=== PATIENT | female | born 1950 | race Caucasian/White ===

== ENCOUNTER 2018-09-09 08:56 | Day surgery (SDC) | payer MEDICARE, OTHER ==
[~2018-09-09 08:56] MED LIST: Lactated Ringers 1,000 ML IV SCH; Sodium Chloride 0.9% 10 ML Syringe FLUSH PRN
[2018-09-09] MEDS ORDERED: Albuterol/Ipratropium 3.0-0.5 MG/3 ML Neb Soln NEB PRN (09:28)
[2018-09-09] MEDS ORDERED: Propofol 200 MG/20 ML SDV ONE (10:31)
[2018-09-09 12:02] VITALS: BP 101/59
--- NOTE | 2018-09-09 13:59 | OR ---
PREOPERATIVE DIAGNOSES: Weight loss, nausea, mild dysphagia. POSTOPERATIVE DIAGNOSES: Large hiatal hernia with multiple proximal gastric ulcers. PROCEDURE PROPOSED: Upper gastrointestinal panendoscopy. PROCEDURE DONE: Upper gastrointestinal panendoscopy with antral biopsies. INDICATION: This is a 68-year-old female with a history of some weight loss, anorexia, nausea, some mild dysphagia, and it was felt that she should be gastroscoped to rule out significant pathology. TECHNIQUE AND FINDINGS: The patient was brought to the endoscopy suite, placed in left lateral decubitus position. She was sedated per FUEL MANAGER with propofol. The flexible video gastroscope was then passed transorally after placing the intraoral bite block. The scope was then advanced into the esophagus, through the stomach, well into the duodenum. The duodenum and duodenal bulb were unremarkable. The antrum and distal portion of the stomach appeared unremarkable. A couple of antral biopsies were taken to rule out H. pylori. The proximal stomach was found to have a rather large significant hiatal hernia, approximately 8 cm of her upper stomach was up in her chest, estimating about at least a 3rd of her stomach being herniated above her diaphragms. There were some gastric ulcers noted within the hiatal hernia. The GE junction itself, however, appeared unremarkable. There were no signs of any reflux esophagitis, Schatzki's ring, or stenosis, and the remainder of the esophagus was normal as the scope was then withdrawn. She tolerated the procedure well. FINAL IMPRESSION: Large hiatal hernia with gastric ulcerations within it. PLAN: She is presently taking Prilosec and has done that for quite some time. I am going to add Carafate to her regimen for 1 month and have her avoid caffeine, alcohol, ibuprofen, and she does smoke and would definitely benefit herself in stopping that. SCM: 09/09/2018 11:52:14 MODL: 09/09/2018 13:51:01 /[id number]
== END 2018-09-09 13:15 | disposition home or self-care (01) ==
LOC: VM.SDS 08:56
PROVIDERS: ATTEND Surgery
DX: K25.9 Gastric ulcer, unspecified as acute or chronic, without hemorrhage or perforation (principal); K44.9 Diaphragmatic hernia without obstruction or gangrene; I50.9 Heart failure, unspecified; J44.9 Chronic obstructive pulmonary disease, unspecified; F17.210 Nicotine dependence, cigarettes, uncomplicated; E78.5 Hyperlipidemia, unspecified; G89.4 Chronic pain syndrome; F41.1 Generalized anxiety disorder; Z86.711 Personal history of pulmonary embolism; Z79.01 Long term (current) use of anticoagulants; Z79.899 Other long term (current) drug therapy; Z88.0 Allergy status to penicillin
CPT/HCPCS: 00731; 36415; 43239; 85610; J2704; J7120; J7620-GY

== ENCOUNTER 2019-02-25 22:53 | Emergency (ER) | payer MEDICARE, OTHER ==
[2019-02-25] MEDS ORDERED: Sodium Chloride 0.9% 10 ML Syringe FLUSH PRN (23:17)
[2019-02-25] MEDS ORDERED: methylPREDNISolone Sodium Succinate 125 MG/2 ML SDV IVPUSH ONE (23:20)
[2019-02-25] MEDS ORDERED: HYDROmorphone 1 MG/ML Syringe IVPUSH ONE (23:21)
[2019-02-25] MEDS ORDERED: Aspirin 81 MG Tab.Chew PO ONE (23:57)
[2019-02-26 00:02] LABS: CHLORIDE,CL 102 mmol/L (98-107); SODIUM,NA 143 mmol/L (136-145)
[2019-02-26 00:21] LABS: ANION GAP 13.1 mmol/L (10-20)
[2019-02-26] MEDS ORDERED: Take Home: Doxycycline 100 MG Tab, 4 Tab Pack PO ONE (00:23)
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
[2019-02-26 07:07] VITALS: BP 123/72; PULSE 88
--- NOTE | 2019-02-26 13:00 | CR ---
[id number] RAD/RAD Chest PA or AP 1V EXAM: RAD Chest PA or AP 1V INDICATION: CHEST PAIN. COMPARISON: None. DISCUSSION: Cardiomediastinal silhouette is normal in size and contour. No infiltrate, effusion, pneumothorax, or edema. Pulmonary hyperinflation. IMPRESSION: No acute cardiopulmonary abnormality. Kj Pavon DO 02/26/19 [id number] Thank you for allowing us to participate in the care of your patient.
== END 2019-02-26 00:40 | disposition home or self-care (01) ==
LOC: SUPCPDRO 22:53 → VM.ED 22:53
DX: J44.1 Chronic obstructive pulmonary disease with (acute) exacerbation (principal); R07.89 Other chest pain; E78.00 Pure hypercholesterolemia, unspecified; I50.9 Heart failure, unspecified; K21.9 Gastro-esophageal reflux disease without esophagitis; F41.9 Anxiety disorder, unspecified; F32.9 Major depressive disorder, single episode, unspecified; Z88.0 Allergy status to penicillin; Z79.899 Other long term (current) drug therapy; Z79.01 Long term (current) use of anticoagulants
CPT/HCPCS: 36415; 71045; 80053; 83605; 83735; 83880; 84100; 84443; 84484; 85025; 85379; 85610; 86140; 87040; 93005; 96374; 99285; A9270; J2930; 99284-GF

== ENCOUNTER 2020-10-01 17:39 | Emergency (ER) | payer MEDICARE, OTHER ==
[2020-10-01] MEDS ORDERED: Sodium Chloride 0.9% 1,000 ML IV SCH (18:00)
[2020-10-01 18:45] LABS: CHLORIDE,CL 103 mmol/L (98-107); SODIUM,NA 142 mmol/L (136-145)
[2020-10-01 18:48] LABS: ANION GAP 11.8 mmol/L (5-15)
--- NOTE | 2020-10-01 18:58 | CR ---
[id number] RAD/RAD Chest PA And Lateral EXAM: RAD Chest PA And Lateral CLINICAL DATA: SHORTNESS OF BREATH COMPARISON: CORRELATION IS MADE WITH FEBRUARY 25, 2019 FINDINGS: The lungs are clear but hyperaerated. The cardiomediastinal contour is prominent but stable There is a moderate hiatal hernia. The regional bones and soft tissues are unremarkable. IMPRESSION: AIRWAY DISEASE Dwight Lopez MD 10/01/20 [id number] Thank you for allowing us to participate in the care of your patient.
[2020-10-01] MEDS ORDERED: cefTRIAXone 1 GM Vial IVPUSH ONE (19:04)
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
[2020-10-01] MEDS ORDERED: methylPREDNISolone Sodium Succinate 125 MG/2 ML SDV IVPUSH ONE (19:05)
[2020-10-01 20:10] VITALS: BP 120/54; PULSE 100
== END 2020-10-01 19:40 | disposition home or self-care (01) ==
LOC: VM.ED 17:39
DX: J44.1 Chronic obstructive pulmonary disease with (acute) exacerbation (principal); I50.9 Heart failure, unspecified; K21.9 Gastro-esophageal reflux disease without esophagitis; F17.210 Nicotine dependence, cigarettes, uncomplicated; Z20.822 Contact with and (suspected) exposure to COVID-19; Z88.0 Allergy status to penicillin; Z79.01 Long term (current) use of anticoagulants
CPT/HCPCS: 36415; 71046; 80053; 83605; 83880; 85025; 85379; 86140; 87040; 96374; 96375; 99284; 99285-25; J0696; J2930; J7030; U0002

== ENCOUNTER 2021-04-12 06:55 | Emergency (ER) | payer MEDICARE, OTHER ==
[2021-04-12 07:25] VITALS: BP 123/71; PULSE 85
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
== END 2021-04-12 08:05 | disposition home or self-care (01) ==
LOC: VM.ED 06:55
DX: R22.32 Localized swelling, mass and lump, left upper limb (principal); Z88.0 Allergy status to penicillin; I50.9 Heart failure, unspecified; J44.9 Chronic obstructive pulmonary disease, unspecified; K21.9 Gastro-esophageal reflux disease without esophagitis; Z79.899 Other long term (current) drug therapy; Z79.01 Long term (current) use of anticoagulants
CPT/HCPCS: 36415; 85610; 99283

== ENCOUNTER 2021-11-02 16:03 | Emergency (ER) | payer MEDICARE, OTHER ==
[2021-11-02] MEDS ORDERED: Acetaminophen/HYDROcodone 325-10 MG Tab PO ONE (16:34)
[2021-11-02 17:07] LABS: CHLORIDE,CL 100 mmol/L (98-107); SODIUM,NA 138 mmol/L (136-145)
[2021-11-02 17:08] LABS: ANION GAP 13.7 mmol/L (5-15)
[2021-11-02 17:35] VITALS: BP 138/88; PULSE 88
== END 2021-11-02 17:33 | disposition home or self-care (01) ==
LOC: VM.ED 16:03
DX: R51.9 Headache, unspecified (principal); I10 Essential (primary) hypertension; J44.9 Chronic obstructive pulmonary disease, unspecified; K21.9 Gastro-esophageal reflux disease without esophagitis; Z87.891 Personal history of nicotine dependence; Z88.0 Allergy status to penicillin; Z88.8 Allergy status to other drugs, medicaments and biological substances; Z79.01 Long term (current) use of anticoagulants; Z79.899 Other long term (current) drug therapy
CPT/HCPCS: 36415; 70450; 80053; 81001; 85025; 85610; 86140; 99284; 99285-25; A9270-GY

== ENCOUNTER 2022-01-25 16:59 | Emergency (ER) | payer MEDICARE, OTHER ==
[2022-01-25 17:08] VITALS: BP 101/48; PULSE 86
[2022-01-25 18:00] LABS: CHLORIDE,CL 103 mmol/L (98-107); SODIUM,NA 142 mmol/L (136-145)
[2022-01-25 18:03] LABS: ANION GAP 16.5 mmol/L (5-15); ESTIMATED GFR 60 mL/min (>=60)
[2022-01-25] MEDS ORDERED: methylPREDNISolone Sodium Succinate 125 MG/2 ML SDV IM ONE (18:19)
== END 2022-01-25 18:39 | disposition home or self-care (01) ==
LOC: VM.ED 16:59
DX: J44.1 Chronic obstructive pulmonary disease with (acute) exacerbation (principal); K21.9 Gastro-esophageal reflux disease without esophagitis; Z79.899 Other long term (current) drug therapy; Z87.891 Personal history of nicotine dependence; Z88.8 Allergy status to other drugs, medicaments and biological substances
CPT/HCPCS: 36415; 71046; 80053; 85025; 85379; 86140; 96372; 99284; 99285; J2930

== ENCOUNTER 2022-09-02 15:04 | Emergency (ER) | payer MEDICARE, OTHER ==
[2022-09-02] MEDS: Sodium Chloride 0.9% 1,000 ML IV ONE (17:58)
[2022-09-02 18:13] LABS: ANION GAP 10.3 mmol/L (5-15); CHLORIDE,CL 102 mmol/L (98-107); ESTIMATED GFR 60 mL/min (>=60); SODIUM,NA 139 mmol/L (136-145)
== END 2022-09-02 21:04 | disposition home or self-care (01) ==
LOC: VM.ED 15:04
DX: R07.89 Other chest pain (principal); I50.9 Heart failure, unspecified; J44.9 Chronic obstructive pulmonary disease, unspecified; K21.9 Gastro-esophageal reflux disease without esophagitis; Z88.0 Allergy status to penicillin; Z88.8 Allergy status to other drugs, medicaments and biological substances; Z79.899 Other long term (current) drug therapy; Z79.01 Long term (current) use of anticoagulants
CPT/HCPCS: 36415; 71046; 80053; 83605; 85025; 85610; 87040; 96360; 96361; 99284; 99285-25; J7030

== ENCOUNTER 2022-11-08 21:36 | Emergency (ER) | payer MEDICARE, OTHER ==
[2022-11-08] MEDS ORDERED: Ondansetron 4 MG Tab.DIS PO ONE (22:06)
[2022-11-08 22:36] LABS: CHLORIDE,CL 100 mmol/L (98-107); SODIUM,NA 138 mmol/L (136-145)
[2022-11-08 22:37] LABS: ANION GAP 14.3 mmol/L (5-15); ESTIMATED GFR 37 mL/min (>=60)
[2022-11-08] MEDS ORDERED: Take Home: Ondansetron 4 MG Tab.DIS, 5 Tab Pack PO ONE (22:41)
[2022-11-08 22:54] VITALS: BP 122/72; PULSE 69
[2022-11-08] MEDS ORDERED: Take Home: Ondansetron 4 MG Tab.DIS, 5 Tab Pack ONE (23:00)
== END 2022-11-08 23:01 | disposition home or self-care (01) ==
LOC: VM.ED 21:36
DX: K52.9 Noninfective gastroenteritis and colitis, unspecified (principal); K21.9 Gastro-esophageal reflux disease without esophagitis; J44.9 Chronic obstructive pulmonary disease, unspecified; M10.9 Gout, unspecified; Z88.0 Allergy status to penicillin; Z88.8 Allergy status to other drugs, medicaments and biological substances; Z79.899 Other long term (current) drug therapy
CPT/HCPCS: 36415; 80053; 85025; 85610; 99284; A9270-GY; Q0162

== ENCOUNTER 2022-12-19 13:31 | Emergency (ER) | payer MEDICARE, OTHER ==
[2022-12-19 14:13] VITALS: BP 126/74; PULSE 90
[2022-12-19 14:23] LABS: BASOPHILS ABSOLUTE AUTO 0.1 x10^3/uL (0.0-0.2); BASOPHILS PERCENT AUTO 1.3 % (0.2-1.2); EOSINOPHILS ABSOLUTE AUTO 0.7 x10^3/uL (0.0-0.5); EOSINOPHILS PERCENT AUTO 13.6 % (0.0-4.0); HEMATOCRIT 41.1 % (33.0-47.0); HEMOGLOBIN 12.2 g/dL (12.0-16.0); IMMATURE GRAN ABSOLUTE AUTO 0.01 x10^3/uL (0.00-0.07); LYMPHOCYTES ABSOLUTE AUTO 1.1 x10^3/uL (1.0-4.8); LYMPHOCYTES PERCENT AUTO 19.6 % (25.0-50.0); MEAN CORPUSCULAR HEMOGLOBIN 27.6 pg (26.0-32.0); MEAN CORPUSCULAR HGB CONC 29.7 g/dL (32.0-36.0); MONOCYTES ABSOLUTE AUTO 0.4 x10^3/uL (0.0-0.8); MONOCYTES PERCENT AUTO 6.7 % (2.0-11.0); NEUTROPHILS ABSOLUTE AUTO 3.1 x10^3/uL (1.8-7.7); NEUTROPHILS PERCENT AUTO 58.6 % (50.0-80.0); PLATELET COUNT,PLT 241 x10^3/uL (130-400); RED BLOOD CELL COUNT 4.42 x10^6/uL (4.00-5.50); WHITE BLOOD CELL COUNT,WBC 5.4 x10^3/uL (4.0-10.0)
[2022-12-19 14:36] LABS: INR 3.4 (2.0-3.5); PROTHROMBIN TIME 34.9 SEC (9.5-12.2)
[2022-12-19 14:42] LABS: A/G RATIO 0.85; ALANINE AMINOTRANSFERASE,ALT 16 U/L (14-59); ALBUMIN 3.3 g/dL (3.4-5.0); ALKALINE PHOSPHATASE 107 U/L (46-116); ANION GAP 0.6 mmol/L (5-15); ASPARTATE AMNIOTRANSFERASE,AST 11 U/L (15-37); BILIRUBIN TOTAL 0.2 mg/dL (0.2-1.0); BLOOD UREA NITROGEN,BUN 16 mg/dL (7-18); C-REACTIVE PROTEIN < 0.2 mg/dL (<=0.9); CALCIUM 9.2 mg/dL (8.5-10.1); CARBON DIOXIDE,CO2 32 mmol/L (21-32); CHLORIDE,CL 103 mmol/L (98-107); CREATININE 1.6 mg/dL (0.55-1.02); EST CRCL DRUG DOSING (CG) 26.29 mL/min; ESTIMATED GFR 34 mL/min (>=60); GLUCOSE RANDOM 101 mg/dL (70-99); POTASSIUM,K 4.6 mmol/L (3.5-5.1); PROTEIN TOTAL,TP 7.2 g/dL (6.4-8.2); SODIUM,NA 131 mmol/L (136-145)
== END 2022-12-19 15:23 | disposition home or self-care (01) ==
LOC: VM.ED 13:31
DX: J44.1 Chronic obstructive pulmonary disease with (acute) exacerbation (principal); I50.9 Heart failure, unspecified; K21.9 Gastro-esophageal reflux disease without esophagitis; Z72.0 Tobacco use; Z88.0 Allergy status to penicillin; Z88.8 Allergy status to other drugs, medicaments and biological substances; Z79.899 Other long term (current) drug therapy
CPT/HCPCS: 36415; 71046; 80053; 83880; 85025; 85610; 86140; 94760; 99284; 99285

== ENCOUNTER 2023-02-01 17:07 | Emergency (ER) | payer MEDICARE, OTHER ==
[2023-02-01 18:19] LABS: BASOPHILS ABSOLUTE AUTO 0.1 x10^3/uL (0.0-0.2); EOSINOPHILS ABSOLUTE AUTO 0.9 x10^3/uL (0.0-0.5); EOSINOPHILS PERCENT AUTO 15.9 % (0.0-4.0); HEMATOCRIT 48.1 % (33.0-47.0); HEMOGLOBIN 14.5 g/dL (12.0-16.0); IMMATURE GRAN ABSOLUTE AUTO 0.01 x10^3/uL (0.00-0.07); LYMPHOCYTES ABSOLUTE AUTO 1.6 x10^3/uL (1.0-4.8); LYMPHOCYTES PERCENT AUTO 27.1 % (25.0-50.0); MEAN CORPUSCULAR HEMOGLOBIN 29.1 pg (26.0-32.0); MEAN CORPUSCULAR HGB CONC 30.1 g/dL (32.0-36.0); MEAN CORPUSCULAR VOLUME 96.4 fL (78.0-93.0); MONOCYTES ABSOLUTE AUTO 0.4 x10^3/uL (0.0-0.8); MONOCYTES PERCENT AUTO 6.6 % (2.0-11.0); NEUTROPHILS ABSOLUTE AUTO 2.9 x10^3/uL (1.8-7.7); NEUTROPHILS PERCENT AUTO 49.2 % (50.0-80.0); PLATELET COUNT,PLT 206 x10^3/uL (130-400); RED BLOOD CELL COUNT 4.99 x10^6/uL (4.00-5.50); WHITE BLOOD CELL COUNT,WBC 5.8 x10^3/uL (4.0-10.0)
[2023-02-01 18:30] LABS: INR 4.3 (2.0-3.5); PROTHROMBIN TIME 44.1 SEC (9.5-12.2)
[2023-02-01 18:35] LABS: A/G RATIO 1.03; ALANINE AMINOTRANSFERASE,ALT 15 U/L (14-59); ALKALINE PHOSPHATASE 131 U/L (46-116); ASPARTATE AMNIOTRANSFERASE,AST 25 U/L (15-37); BILIRUBIN TOTAL 0.3 mg/dL (0.2-1.0); BLOOD UREA NITROGEN,BUN 9 mg/dL (7-18); CALCIUM 9.4 mg/dL (8.5-10.1); CARBON DIOXIDE,CO2 35 mmol/L (21-32); CHLORIDE,CL 99 mmol/L (98-107); CREATINE KINASE,CK 145 U/L (26-192); CREATININE 1.7 mg/dL (0.55-1.02); GLUCOSE RANDOM 116 mg/dL (70-99); POTASSIUM,K 4.8 mmol/L (3.5-5.1); PROTEIN TOTAL,TP 7.9 g/dL (6.4-8.2); SODIUM,NA 141 mmol/L (136-145)
[2023-02-01 18:36] LABS: ANION GAP 11.8 mmol/L (5-15); ESTIMATED GFR 32 mL/min (>=60)
[2023-02-01 22:14] VITALS: BP 135/67
[2023-02-01 22:15] VITALS: PULSE 89
== END 2023-02-01 21:10 | disposition home or self-care (01) ==
LOC: VM.ED 17:07
DX: R51.9 Headache, unspecified (principal); R42 Dizziness and giddiness; R09.02 Hypoxemia; I50.9 Heart failure, unspecified; J44.9 Chronic obstructive pulmonary disease, unspecified; K21.9 Gastro-esophageal reflux disease without esophagitis; F17.210 Nicotine dependence, cigarettes, uncomplicated; Z88.0 Allergy status to penicillin; Z88.8 Allergy status to other drugs, medicaments and biological substances; Z79.01 Long term (current) use of anticoagulants; Z79.899 Other long term (current) drug therapy
CPT/HCPCS: 36415; 70450; 71046; 80053; 82550; 85025; 85610; 86140; 99284

== ENCOUNTER 2023-03-20 15:58 | Inpatient (IN) | payer MEDICARE, OTHER ==
[2023-03-20] MEDS ORDERED: Levofloxacin 500 MG Tab PO SCH ×2 (16:30→18:31)
[2023-03-20] MEDS ORDERED: Heparin Sodium 5,000 Units/ML Vial SUBCUT SCH (16:30)
[2023-03-20] MEDS ORDERED: Albuterol/Ipratropium 3.0-0.5 MG/3 ML Neb Soln NEB PRN (16:36)
[2023-03-20] MEDS ORDERED: methylPREDNISolone Sodium Succinate 40 MG/1 ML SDV IVPUSH ONE (16:45)
[2023-03-20 17:18] LABS: BASOPHILS ABSOLUTE AUTO 0.1 x10^3/uL (0.0-0.2); BASOPHILS PERCENT AUTO 0.9 % (0.2-1.2); EOSINOPHILS ABSOLUTE AUTO 0.5 x10^3/uL (0.0-0.5); EOSINOPHILS PERCENT AUTO 10.1 % (0.0-4.0); HEMATOCRIT 49.9 % (33.0-47.0); HEMOGLOBIN 15.9 g/dL (12.0-16.0); LYMPHOCYTES ABSOLUTE AUTO 1.5 x10^3/uL (1.0-4.8); LYMPHOCYTES PERCENT AUTO 28.4 % (25.0-50.0); MEAN CORPUSCULAR HGB CONC 31.9 g/dL (32.0-36.0); MEAN CORPUSCULAR VOLUME 97.3 fL (78.0-93.0); MONOCYTES ABSOLUTE AUTO 0.4 x10^3/uL (0.0-0.8); MONOCYTES PERCENT AUTO 8.2 % (2.0-11.0); NEUTROPHILS ABSOLUTE AUTO 2.8 x10^3/uL (1.8-7.7); NEUTROPHILS PERCENT AUTO 52.4 % (50.0-80.0); PLATELET COUNT,PLT 153 x10^3/uL (130-400); RED BLOOD CELL COUNT 5.13 x10^6/uL (4.00-5.50); WHITE BLOOD CELL COUNT,WBC 5.4 x10^3/uL (4.0-10.0)
[2023-03-20 17:30] LABS: PROTHROMBIN TIME 20.5 SEC (9.5-12.2)
[2023-03-20 17:40] LABS: A/G RATIO 1.14; ALBUMIN 4.1 g/dL (3.4-5.0); BILIRUBIN TOTAL 0.3 mg/dL (0.2-1.0); CALCIUM 9.3 mg/dL (8.5-10.1); CREATININE 2.4 mg/dL (0.55-1.02); EST CRCL DRUG DOSING (CG) 15.22 mL/min; POTASSIUM,K 4.5 mmol/L (3.5-5.1); PROTEIN TOTAL,TP 7.7 g/dL (6.4-8.2)
[2023-03-20 17:41] LABS: ANION GAP 9.5 mmol/L (5-15)
[2023-03-20 18:01] LABS: CORONAVIRUS COVID-19 NAA NEGATIVE (NEGATIVE); INFLUENZA A NAA NEGATIVE (NEGATIVE); INFLUENZA B NAA NEGATIVE (NEGATIVE); RESPIRATORY SYNCYTIAL VIR NAA NEGATIVE (NEGATIVE)
[2023-03-20] MEDS: methylPREDNISolone Sodium Succinate 40 MG/1 ML SDV IVPUSH SCH ×2 (18:18→18:19)
[2023-03-20] MEDS: Sodium Chloride 0.9% 10 ML Syringe FLUSH PRN (18:20)
[2023-03-20] MEDS ORDERED: Acetaminophen/HYDROcodone 325-10 MG Tab PO PRN (18:31)
[2023-03-20] MEDS ORDERED: hydrOXYzine HCl 25 MG Tab PO PRN (18:31)
[2023-03-20] MEDS ORDERED: CARISOPRODOL 350 MG PO PRN (18:31)
[2023-03-20] MEDS ORDERED: Acetaminophen/Diphenhydramine 500-25 MG Tab PO PRN (18:31)
[2023-03-20] MEDS ORDERED: Polyethylene Glycol 3350 Powder 17 GM Packet PO PRN (18:31)
[2023-03-20] MEDS: Albuterol/Ipratropium 3.0-0.5 MG/3 ML Neb Soln NEB SCH ×2 (18:51→23:01)
[2023-03-20] MEDS: Sodium Chloride 0.9% 1,000 ML IV SCH (19:11)
[2023-03-20] MEDS: Gabapentin 300 MG Cap PO SCH ×2 (21:18→21:19)
[2023-03-20] MEDS: traZODone 50 MG Tab PO SCH (21:20)
[2023-03-20] MEDS: Arformoterol 15 MCG/2 ML Neb Soln NEB SCH (21:23)
[2023-03-21] MEDS: Albuterol/Ipratropium 3.0-0.5 MG/3 ML Neb Soln NEB SCH ×6 (02:48→23:14)
[2023-03-21] MEDS: Sodium Chloride 0.9% 1,000 ML IV SCH (02:58)
[2023-03-21] MEDS: methylPREDNISolone Sodium Succinate 40 MG/1 ML SDV IVPUSH SCH ×2 (06:02→17:38)
[2023-03-21] MEDS: Omeprazole 20 MG Cap.CR PO SCH (06:07)
[2023-03-21] MEDS: Arformoterol 15 MCG/2 ML Neb Soln NEB SCH ×2 (06:48→22:00)
[2023-03-21] MEDS: Multivitamin Tab PO SCH (08:15)
[2023-03-21] MEDS: Gabapentin 300 MG Cap PO SCH ×4 (08:15→23:13)
[2023-03-21 09:42] LABS: HEMOGLOBIN 14.1 g/dL (12.0-16.0); MEAN CORPUSCULAR HEMOGLOBIN 31.1 pg (26.0-32.0); MEAN CORPUSCULAR HGB CONC 31.3 g/dL (32.0-36.0); MEAN CORPUSCULAR VOLUME 99.3 fL (78.0-93.0); RED BLOOD CELL COUNT 4.53 x10^6/uL (4.00-5.50); WHITE BLOOD CELL COUNT,WBC 3.9 x10^3/uL (4.0-10.0)
[2023-03-21 09:44] LABS: BILIRUBIN,URINE NEGATIVE (NEGATIVE); COLOR,URINE YELLOW (YELLOW); GLUCOSE,URINE NEGATIVE (NEGATIVE); KETONES,URINE NEGATIVE (NEGATIVE); LEUKOCYTE ESTERASE,URINE SMALL (NEGATIVE); NITRITE,URINE NEGATIVE (NEGATIVE); OCCULT BLOOD,URINE NEGATIVE (NEGATIVE); PROTEIN,URINE NEGATIVE (NEGATIVE); UROBILINOGEN,URINE 0.2 EU/dL (0.2)
[2023-03-21 09:46] LABS: APPEARANCE,URINE SLIGHTLY CLOUDY (CLEAR)
[2023-03-21 09:49] LABS: BACTERIA,URINE OCCASIONAL /HPF (NOT SEEN); MUCUS,URINE OCCASIONAL /LPF (NOT SEEN); RBC,URINE 0-5 /HPF (NOT SEEN); SQUAMOUS EPITHELIAL CELLS,UR FEW /HPF (NOT SEEN)
[2023-03-21 09:57] LABS: CALCIUM 8.3 mg/dL (8.5-10.1); CREATININE 1.7 mg/dL (0.55-1.02); EST CRCL DRUG DOSING (CG) 21.49 mL/min; MAGNESIUM 1.9 mg/dL (1.8-2.4); POTASSIUM,K 4.6 mmol/L (3.5-5.1)
[2023-03-21 09:59] LABS: ANION GAP 12.6 mmol/L (5-15)
[2023-03-21] MEDS: Heparin Sodium 5,000 Units/ML Vial SUBCUT SCH ×2 (10:06→19:10)
[2023-03-21] MEDS: Venlafaxine 150 MG Cap.ER PO SCH (12:08)
[2023-03-21] MEDS: Sodium Chloride 0.9% 10 ML Syringe FLUSH PRN (17:47)
[2023-03-21] MEDS ORDERED: Warfarin 5 MG Tab PO SCH (20:00)
[2023-03-21] MEDS: traZODone 50 MG Tab PO SCH (22:00)
[2023-03-22] MEDS: Albuterol/Ipratropium 3.0-0.5 MG/3 ML Neb Soln NEB SCH ×3 (03:10→10:17)
[2023-03-22] MEDS: methylPREDNISolone Sodium Succinate 40 MG/1 ML SDV IVPUSH SCH (06:36)
[2023-03-22] MEDS: Omeprazole 20 MG Cap.CR PO SCH (06:40)
[2023-03-22] MEDS: Arformoterol 15 MCG/2 ML Neb Soln NEB SCH (07:09)
[2023-03-22 07:12] LABS: INR 1.4 (2.0-3.5); PROTHROMBIN TIME 15.2 SEC (9.5-12.2)
[2023-03-22] MEDS: Venlafaxine 150 MG Cap.ER PO SCH (08:15)
[2023-03-22] MEDS: Multivitamin Tab PO SCH (08:15)
[2023-03-22] MEDS: Gabapentin 300 MG Cap PO SCH ×2 (08:15→12:45)
[2023-03-22 08:22] LABS: BASOPHILS PERCENT AUTO 0.1 % (0.2-1.2); HEMATOCRIT 42.1 % (33.0-47.0); HEMOGLOBIN 13.5 g/dL (12.0-16.0); IMMATURE GRAN ABSOLUTE AUTO 0.03 x10^3/uL (0.00-0.07); LYMPHOCYTES ABSOLUTE AUTO 0.6 x10^3/uL (1.0-4.8); LYMPHOCYTES PERCENT AUTO 6.2 % (25.0-50.0); MEAN CORPUSCULAR HEMOGLOBIN 31.2 pg (26.0-32.0); MEAN CORPUSCULAR HGB CONC 32.1 g/dL (32.0-36.0); MEAN CORPUSCULAR VOLUME 97.2 fL (78.0-93.0); MONOCYTES ABSOLUTE AUTO 0.4 x10^3/uL (0.0-0.8); MONOCYTES PERCENT AUTO 4.6 % (2.0-11.0); NEUTROPHILS ABSOLUTE AUTO 8.1 x10^3/uL (1.8-7.7); NEUTROPHILS PERCENT AUTO 88.8 % (50.0-80.0); RED BLOOD CELL COUNT 4.33 x10^6/uL (4.00-5.50); WHITE BLOOD CELL COUNT,WBC 9.1 x10^3/uL (4.0-10.0)
[2023-03-22 08:30] LABS: PLATELET COUNT,PLT 122 x10^3/uL (130-400)
[2023-03-22 08:32] LABS: A/G RATIO 1.06; ALBUMIN 3.4 g/dL (3.4-5.0); ANION GAP 8.3 mmol/L (5-15); BILIRUBIN TOTAL 0.4 mg/dL (0.2-1.0); CALCIUM 9.3 mg/dL (8.5-10.1); CREATININE 1.4 mg/dL (0.55-1.02); EST CRCL DRUG DOSING (CG) 26.09 mL/min; POTASSIUM,K 5.3 mmol/L (3.5-5.1); PROTEIN TOTAL,TP 6.6 g/dL (6.4-8.2)
[2023-03-22] MEDS ORDERED: Levofloxacin 250 MG Tab PO SCH (09:00)
[2023-03-22] MEDS ORDERED: Heparin Sodium 5,000 Units/ML Vial SUBCUT SCH (09:00)
[2023-03-22 15:37] VITALS: BP 126/59; PULSE 88
[2023-03-22] MEDS ORDERED: Warfarin 5 MG Tab PO SCH (20:00)
== END 2023-03-22 16:50 | disposition home health service (06) | DRG 189 ==
LOC: VM.MS 15:58
PROVIDERS: ADMIT Internal Medicine; ATTEND Internal Medicine
DX: J96.21 Acute and chronic respiratory failure with hypoxia (principal); J44.1 Chronic obstructive pulmonary disease with (acute) exacerbation; N17.9 Acute kidney failure, unspecified; M48.061 Spinal stenosis, lumbar region without neurogenic claudication; K59.00 Constipation, unspecified; F41.9 Anxiety disorder, unspecified; I50.9 Heart failure, unspecified; Z20.822 Contact with and (suspected) exposure to COVID-19; E78.5 Hyperlipidemia, unspecified; K21.9 Gastro-esophageal reflux disease without esophagitis; F32.A Depression, unspecified; M19.90 Unspecified osteoarthritis, unspecified site; Z96.643 Presence of artificial hip joint, bilateral; E53.8 Deficiency of other specified B group vitamins; N18.9 Chronic kidney disease, unspecified; M54.9 Dorsalgia, unspecified; G89.29 Other chronic pain; Z79.899 Other long term (current) drug therapy; Z90.5 Acquired absence of kidney; Z85.528 Personal history of other malignant neoplasm of kidney; Z88.0 Allergy status to penicillin; Z88.8 Allergy status to other drugs, medicaments and biological substances; Z88.1 Allergy status to other antibiotic agents; Z79.01 Long term (current) use of anticoagulants; Z86.711 Personal history of pulmonary embolism; Z98.890 Other specified postprocedural states; Z90.710 Acquired absence of both cervix and uterus; Z98.49 Cataract extraction status, unspecified eye
CPT/HCPCS: 0241U; 36415; 71046; 80048; 80053; 81001; 83735; 83880; 85025; 85027; 85610; 87086; 94640; 97116-GP; 97161-GP; A9270-GY; J1644; J2920; J3490; J7030; J7620-GY

== ENCOUNTER 2023-04-24 23:09 | Emergency (ER) | payer MEDICARE, OTHER ==
[2023-04-24 23:54] LABS: BASOPHILS ABSOLUTE AUTO 0.1 x10^3/uL (0.0-0.2); BASOPHILS PERCENT AUTO 0.9 % (0.2-1.2); EOSINOPHILS ABSOLUTE AUTO 0.3 x10^3/uL (0.0-0.5); EOSINOPHILS PERCENT AUTO 4.1 % (0.0-4.0); HEMATOCRIT 52.2 % (33.0-47.0); HEMOGLOBIN 16.4 g/dL (12.0-16.0); IMMATURE GRAN ABSOLUTE AUTO 0.03 x10^3/uL (0.00-0.07); LYMPHOCYTES PERCENT AUTO 25.5 % (25.0-50.0); MEAN CORPUSCULAR HEMOGLOBIN 30.5 pg (26.0-32.0); MEAN CORPUSCULAR HGB CONC 31.4 g/dL (32.0-36.0); MEAN CORPUSCULAR VOLUME 97.2 fL (78.0-93.0); MONOCYTES ABSOLUTE AUTO 0.6 x10^3/uL (0.0-0.8); MONOCYTES PERCENT AUTO 7.6 % (2.0-11.0); NEUTROPHILS ABSOLUTE AUTO 4.8 x10^3/uL (1.8-7.7); NEUTROPHILS PERCENT AUTO 61.5 % (50.0-80.0); PLATELET COUNT,PLT 168 x10^3/uL (130-400); RED BLOOD CELL COUNT 5.37 x10^6/uL (4.00-5.50); WHITE BLOOD CELL COUNT,WBC 7.7 x10^3/uL (4.0-10.0)
[2023-04-25 00:11] LABS: ALANINE AMINOTRANSFERASE,ALT 10 U/L (14-59); ALBUMIN 3.5 g/dL (3.4-5.0); ALKALINE PHOSPHATASE 110 U/L (46-116); ANION GAP 7.8 mmol/L (5-15); ASPARTATE AMNIOTRANSFERASE,AST 18 U/L (15-37); BILIRUBIN TOTAL 0.7 mg/dL (0.2-1.0); BLOOD UREA NITROGEN,BUN 19 mg/dL (7-18); C-REACTIVE PROTEIN 0.12 mg/dL (<=0.30); CARBON DIOXIDE,CO2 34 mmol/L (21-32); CHLORIDE,CL 101 mmol/L (98-107); CREATININE 1.9 mg/dL (0.55-1.02); ESTIMATED GFR 28 mL/min (>=60); GLUCOSE RANDOM 139 mg/dL (70-99); POTASSIUM,K 3.8 mmol/L (3.5-5.1); PROTEIN TOTAL,TP 7.4 g/dL (6.4-8.2); SODIUM,NA 139 mmol/L (136-145)
[2023-04-25 00:17] LABS: CALCIUM 9.8 mg/dL (8.5-10.1)
[2023-04-25 00:40] LABS: BILIRUBIN,URINE NEGATIVE (NEGATIVE); COLOR,URINE DARK YELLOW (YELLOW); GLUCOSE,URINE NEGATIVE (NEGATIVE); KETONES,URINE NEGATIVE (NEGATIVE); LEUKOCYTE ESTERASE,URINE MODERATE (NEGATIVE); NITRITE,URINE NEGATIVE (NEGATIVE); OCCULT BLOOD,URINE TRACE-LYSED (NEGATIVE); PH,URINE 6.5 (5.0-8.0); PROTEIN,URINE NEGATIVE (NEGATIVE); UROBILINOGEN,URINE 0.2 EU/dL (0.2)
[2023-04-25 00:59] LABS: APPEARANCE,URINE CLOUDY (CLEAR)
[2023-04-25 01:01] LABS: BACTERIA,URINE OCCASIONAL /HPF (NOT SEEN); RBC,URINE 0-5 /HPF (NOT SEEN); SQUAMOUS EPITHELIAL CELLS,UR FEW /HPF (NOT SEEN); WBC,URINE 30-40 /HPF (NOT SEEN)
[2023-04-25] MEDS: Take Home: Nitrofurantoin Monohydrate/Macrocrystalline 100 MG, 6 Cap Pack PO ONE (01:16)
[2023-04-25 02:10] VITALS: BP 136/75; PULSE 91
== END 2023-04-25 01:30 | disposition home or self-care (01) ==
LOC: VM.ED 23:09
DX: S80.02XA Contusion of left knee, initial encounter (principal); K21.9 Gastro-esophageal reflux disease without esophagitis; J44.9 Chronic obstructive pulmonary disease, unspecified; F17.200 Nicotine dependence, unspecified, uncomplicated; Z88.0 Allergy status to penicillin; Z88.8 Allergy status to other drugs, medicaments and biological substances; Z79.899 Other long term (current) drug therapy; Z79.01 Long term (current) use of anticoagulants; Z90.710 Acquired absence of both cervix and uterus; W18.39XA Other fall on same level, initial encounter
CPT/HCPCS: 36415; 71046; 73562; 80053; 81001; 85025; 86140; 87086; 99283; 99284; A9270

== ENCOUNTER 2023-05-20 10:40 | Emergency (ER) | payer MEDICARE, OTHER ==
[2023-05-20 11:57] LABS: CORONAVIRUS COVID-19 NAA NEGATIVE (NEGATIVE); INFLUENZA A NAA NEGATIVE (NEGATIVE); INFLUENZA B NAA NEGATIVE (NEGATIVE); RESPIRATORY SYNCYTIAL VIR NAA NEGATIVE (NEGATIVE)
[2023-05-20] MEDS ORDERED: predniSONE 20 MG Tab PO ONE (12:10)
[2023-05-20] MEDS ORDERED: Take Home: Doxycycline 100 MG Cap, 4 Cap Pack PO ONE (12:10)
[2023-05-20 13:42] VITALS: BP 133/64; PULSE 76
== END 2023-05-20 12:30 | disposition home or self-care (01) ==
LOC: VM.ED 10:40
DX: J44.9 Chronic obstructive pulmonary disease, unspecified (principal); I50.9 Heart failure, unspecified; K21.9 Gastro-esophageal reflux disease without esophagitis; F17.210 Nicotine dependence, cigarettes, uncomplicated; Z20.822 Contact with and (suspected) exposure to COVID-19; Z79.899 Other long term (current) drug therapy; Z90.710 Acquired absence of both cervix and uterus; Z79.01 Long term (current) use of anticoagulants; Z88.0 Allergy status to penicillin; Z88.8 Allergy status to other drugs, medicaments and biological substances
CPT/HCPCS: 0241U; 71045; 99285; A9270; J7512; 99284

== ENCOUNTER 2023-05-22 16:39 | Emergency (ER) | payer MEDICARE, OTHER ==
[2023-05-22] MEDS ORDERED: Sodium Chloride 0.9% 500 ML IV ONE (17:02)
[2023-05-22 17:12] LABS: BASOPHILS PERCENT AUTO 0.1 % (0.2-1.2); EOSINOPHILS ABSOLUTE AUTO 0.1 x10^3/uL (0.0-0.5); EOSINOPHILS PERCENT AUTO 1.8 % (0.0-4.0); HEMATOCRIT 60.8 % (33.0-47.0); HEMOGLOBIN 18.8 g/dL (12.0-16.0); IMMATURE GRAN ABSOLUTE AUTO 0.02 x10^3/uL (0.00-0.07); LYMPHOCYTES ABSOLUTE AUTO 2.4 x10^3/uL (1.0-4.8); LYMPHOCYTES PERCENT AUTO 30.4 % (25.0-50.0); MEAN CORPUSCULAR HEMOGLOBIN 29.9 pg (26.0-32.0); MEAN CORPUSCULAR HGB CONC 30.9 g/dL (32.0-36.0); MEAN CORPUSCULAR VOLUME 96.7 fL (78.0-93.0); MONOCYTES ABSOLUTE AUTO 0.5 x10^3/uL (0.0-0.8); MONOCYTES PERCENT AUTO 6.5 % (2.0-11.0); NEUTROPHILS ABSOLUTE AUTO 4.8 x10^3/uL (1.8-7.7); NEUTROPHILS PERCENT AUTO 60.9 % (50.0-80.0); PLATELET COUNT,PLT 170 x10^3/uL (130-400); RED BLOOD CELL COUNT 6.29 x10^6/uL (4.00-5.50); WHITE BLOOD CELL COUNT,WBC 7.8 x10^3/uL (4.0-10.0)
[2023-05-22 17:13] LABS: APPEARANCE,URINE CLEAR (CLEAR); BILIRUBIN,URINE NEGATIVE (NEGATIVE); COLOR,URINE YELLOW (YELLOW); GLUCOSE,URINE NEGATIVE (NEGATIVE); KETONES,URINE NEGATIVE (NEGATIVE); LEUKOCYTE ESTERASE,URINE SMALL (NEGATIVE); NITRITE,URINE NEGATIVE (NEGATIVE); OCCULT BLOOD,URINE TRACE-INTACT (NEGATIVE); PH,URINE 6.5 (5.0-8.0); PROTEIN,URINE NEGATIVE (NEGATIVE); UROBILINOGEN,URINE 0.2 EU/dL (0.2)
[2023-05-22 17:19] LABS: BACTERIA,URINE NOT SEEN /HPF (NOT SEEN); MUCUS,URINE NOT SEEN /LPF (NOT SEEN); RBC,URINE NOT SEEN /HPF (NOT SEEN); SQUAMOUS EPITHELIAL CELLS,UR RARE /HPF (NOT SEEN); WBC,URINE 0-5 /HPF (NOT SEEN)
[2023-05-22 17:40] LABS: A/G RATIO 0.97; ALANINE AMINOTRANSFERASE,ALT 22 U/L (14-59); ALBUMIN 3.6 g/dL (3.4-5.0); ALKALINE PHOSPHATASE 99 U/L (46-116); ASPARTATE AMNIOTRANSFERASE,AST 21 U/L (15-37); BILIRUBIN TOTAL 0.9 mg/dL (0.2-1.0); BLOOD UREA NITROGEN,BUN 27 mg/dL (7-18); CALCIUM 9.7 mg/dL (8.5-10.1); CARBON DIOXIDE,CO2 37 mmol/L (21-32); CHLORIDE,CL 101 mmol/L (98-107); CREATININE 1.9 mg/dL (0.55-1.02); GLUCOSE RANDOM 91 mg/dL (70-99); LIPASE 75 U/L (19-71); POTASSIUM,K 4.4 mmol/L (3.5-5.1); PRO B-TYPE NATRIUR PEPT,BNPPRO 283 pg/mL (<=125); PROTEIN TOTAL,TP 7.3 g/dL (6.4-8.2); SODIUM,NA 142 mmol/L (136-145)
[2023-05-22 17:49] LABS: ANION GAP 8.4 mmol/L (5-15); ESTIMATED GFR 28 mL/min (>=60)
[2023-05-22 18:38] VITALS: BP 126/78; PULSE 82
== END 2023-05-22 18:41 | disposition home or self-care (01) ==
LOC: VM.ED 16:39
DX: R53.81 Other malaise (principal); R53.83 Other fatigue; I50.9 Heart failure, unspecified; J44.9 Chronic obstructive pulmonary disease, unspecified; K21.9 Gastro-esophageal reflux disease without esophagitis; Z88.0 Allergy status to penicillin; Z88.8 Allergy status to other drugs, medicaments and biological substances; Z79.01 Long term (current) use of anticoagulants; Z79.899 Other long term (current) drug therapy
CPT/HCPCS: 70450; 71045; 80053; 81001; 83690; 83880; 84484; 85025; 93005; 96360; 99285; J7030

== ENCOUNTER 2023-12-30 09:38 | Emergency (ER) | payer MEDICARE, OTHER ==
[2023-12-30] MEDS ORDERED: Sodium Chloride 0.9% 10 ML Syringe FLUSH PRN (10:24)
[2023-12-30 10:34] LABS: BASOPHILS PERCENT AUTO 0.4 % (0.2-1.2); EOSINOPHILS ABSOLUTE AUTO 0.5 x10^3/uL (0.0-0.5); EOSINOPHILS PERCENT AUTO 7.6 % (0.0-4.0); HEMATOCRIT 53.6 % (33.0-47.0); HEMOGLOBIN 17.7 g/dL (12.0-16.0); IMMATURE GRAN ABSOLUTE AUTO 0.02 x10^3/uL (0.00-0.07); LYMPHOCYTES ABSOLUTE AUTO 1.4 x10^3/uL (1.0-4.8); LYMPHOCYTES PERCENT AUTO 20.9 % (25.0-50.0); MEAN CORPUSCULAR HEMOGLOBIN 32.8 pg (26.0-32.0); MEAN CORPUSCULAR VOLUME 99.4 fL (78.0-93.0); MONOCYTES ABSOLUTE AUTO 0.4 x10^3/uL (0.0-0.8); MONOCYTES PERCENT AUTO 6.5 % (2.0-11.0); NEUTROPHILS ABSOLUTE AUTO 4.4 x10^3/uL (1.8-7.7); NEUTROPHILS PERCENT AUTO 64.3 % (50.0-80.0); PLATELET COUNT,PLT 246 x10^3/uL (130-400); RED BLOOD CELL COUNT 5.39 x10^6/uL (4.00-5.50); WHITE BLOOD CELL COUNT,WBC 6.8 x10^3/uL (4.0-10.0)
[2023-12-30] MEDS: Albuterol 0.083% 2.5 MG/3 ML Neb Soln NEB ONE (10:39)
[2023-12-30 10:54] LABS: A/G RATIO 0.95; ALANINE AMINOTRANSFERASE,ALT 17 U/L (14-59); ALBUMIN 3.8 g/dL (3.4-5.0); ALKALINE PHOSPHATASE 124 U/L (46-116); ASPARTATE AMNIOTRANSFERASE,AST 12 U/L (15-37); BLOOD UREA NITROGEN,BUN 13 mg/dL (7-18); CALCIUM 10.2 mg/dL (8.5-10.1); CARBON DIOXIDE,CO2 33 mmol/L (21-32); CHLORIDE,CL 102 mmol/L (98-107); CREATININE 1.5 mg/dL (0.55-1.02); GLUCOSE RANDOM 133 mg/dL (70-99); LIPASE 43 U/L (19-71); POTASSIUM,K 4.3 mmol/L (3.5-5.1); PRO B-TYPE NATRIUR PEPT,BNPPRO 312 pg/mL (<=125); PROTEIN TOTAL,TP 7.8 g/dL (6.4-8.2); SODIUM,NA 141 mmol/L (136-145)
[2023-12-30 10:55] LABS: ANION GAP 10.3 mmol/L (5-15); ESTIMATED GFR 37 mL/min (>=60)
[2023-12-30] MEDS: Acetaminophen 500 MG Tab PO ONE (11:29)
[2023-12-30] MEDS: Iopamidol 612 MG/ML 100 ML Bottle IVPUSH ONE (11:54)
[2023-12-30] MEDS: Sodium Chloride 0.9% 1,000 ML IV ONE (12:16)
[2023-12-30] MEDS ORDERED: Dexamethasone 4 MG/ML SDV IVPUSH ONE (12:45)
[2023-12-30 20:20] VITALS: BP 122/80; PULSE 88
== END 2023-12-30 14:10 | disposition home or self-care (01) ==
LOC: VM.ED 09:38
DX: R10.84 Generalized abdominal pain (principal); J40 Bronchitis, not specified as acute or chronic; I50.9 Heart failure, unspecified; K21.9 Gastro-esophageal reflux disease without esophagitis; Z90.710 Acquired absence of both cervix and uterus; Z79.899 Other long term (current) drug therapy; Z79.51 Long term (current) use of inhaled steroids; Z88.0 Allergy status to penicillin; Z88.8 Allergy status to other drugs, medicaments and biological substances
CPT/HCPCS: 71045; 74177; 80053; 83690; 83880; 84484; 85025; 93005; 94640; 96360; 96361; 99284; A9270; J7030; Q9967; 93010; J7613-GY

== ENCOUNTER 2024-01-10 20:09 | Emergency (ER) | payer MEDICARE, OTHER ==
[2024-01-10 20:30] LABS: BASOPHILS PERCENT AUTO 0.7 % (0.2-1.2); EOSINOPHILS ABSOLUTE AUTO 0.6 x10^3/uL (0.0-0.5); EOSINOPHILS PERCENT AUTO 10.6 % (0.0-4.0); HEMATOCRIT 51.2 % (33.0-47.0); HEMOGLOBIN 16.4 g/dL (12.0-16.0); IMMATURE GRAN ABSOLUTE AUTO 0.01 x10^3/uL (0.00-0.07); LYMPHOCYTES ABSOLUTE AUTO 1.6 x10^3/uL (1.0-4.8); LYMPHOCYTES PERCENT AUTO 27.8 % (25.0-50.0); MONOCYTES ABSOLUTE AUTO 0.5 x10^3/uL (0.0-0.8); MONOCYTES PERCENT AUTO 7.8 % (2.0-11.0); NEUTROPHILS ABSOLUTE AUTO 3.1 x10^3/uL (1.8-7.7); NEUTROPHILS PERCENT AUTO 52.9 % (50.0-80.0); PLATELET COUNT,PLT 155 x10^3/uL (130-400); RED BLOOD CELL COUNT 4.97 x10^6/uL (4.00-5.50); WHITE BLOOD CELL COUNT,WBC 5.8 x10^3/uL (4.0-10.0)
[2024-01-10 20:40] LABS: APPEARANCE,URINE CLEAR (CLEAR); BILIRUBIN,URINE NEGATIVE (NEGATIVE); COLOR,URINE YELLOW (YELLOW); GLUCOSE,URINE NEGATIVE (NEGATIVE); KETONES,URINE NEGATIVE (NEGATIVE); LEUKOCYTE ESTERASE,URINE TRACE (NEGATIVE); NITRITE,URINE NEGATIVE (NEGATIVE); OCCULT BLOOD,URINE NEGATIVE (NEGATIVE); PROTEIN,URINE NEGATIVE (NEGATIVE); UROBILINOGEN,URINE 0.2 EU/dL (0.2)
[2024-01-10 20:42] LABS: RBC,URINE NOT SEEN /HPF (NOT SEEN); WBC,URINE 0-5 /HPF (NOT SEEN)
[2024-01-10 20:43] LABS: BACTERIA,URINE OCCASIONAL /HPF (NOT SEEN); SQUAMOUS EPITHELIAL CELLS,UR OCCASIONAL /HPF (NOT SEEN)
[2024-01-10 20:48] VITALS: BP 101/72; PULSE 84
[2024-01-10 21:04] LABS: A/G RATIO 0.93; ALANINE AMINOTRANSFERASE,ALT 20 U/L (14-59); ALBUMIN 3.7 g/dL (3.4-5.0); ALKALINE PHOSPHATASE 104 U/L (46-116); ASPARTATE AMNIOTRANSFERASE,AST 14 U/L (15-37); BILIRUBIN TOTAL 0.4 mg/dL (0.2-1.0); BLOOD UREA NITROGEN,BUN 14 mg/dL (7-18); CALCIUM 9.8 mg/dL (8.5-10.1); CARBON DIOXIDE,CO2 33 mmol/L (21-32); CHLORIDE,CL 102 mmol/L (98-107); CREATININE 1.6 mg/dL (0.55-1.02); EST CRCL DRUG DOSING (CG) 27.04 mL/min; GLUCOSE RANDOM 94 mg/dL (70-99); POTASSIUM,K 4.3 mmol/L (3.5-5.1); PROTEIN TOTAL,TP 7.7 g/dL (6.4-8.2); SODIUM,NA 142 mmol/L (136-145)
[2024-01-10 21:05] LABS: ANION GAP 11.3 mmol/L (5-15); C-REACTIVE PROTEIN < 0.50 mg/dL (<=0.50); ESTIMATED GFR 34 mL/min (>=60)
[2024-01-10] MEDS: Take Home: Nitrofurantoin Monohydrate/Macrocrystalline 100 MG, 6 Cap Pack PO ONE (21:45)
== END 2024-01-10 21:52 | disposition home or self-care (01) ==
LOC: VM.ED 20:09
DX: N39.0 Urinary tract infection, site not specified (principal); J44.9 Chronic obstructive pulmonary disease, unspecified; I50.9 Heart failure, unspecified; K21.9 Gastro-esophageal reflux disease without esophagitis; Z79.899 Other long term (current) drug therapy; Z79.01 Long term (current) use of anticoagulants; Z88.8 Allergy status to other drugs, medicaments and biological substances; Z88.0 Allergy status to penicillin; Z88.1 Allergy status to other antibiotic agents
CPT/HCPCS: 36415; 80053; 81001; 85025; 86140; 87086; 99284; A9270-GY

== ENCOUNTER 2024-02-07 15:13 | Inpatient (IN) | payer MEDICARE, OTHER ==
[2024-02-07] MEDS ORDERED: Albuterol 0.083% 2.5 MG/3 ML Neb Soln NEB PRN (16:00)
[2024-02-07] MEDS ORDERED: Acetaminophen/Diphenhydramine 500-25 MG Tab PO PRN (16:13)
[2024-02-07] MEDS ORDERED: Hypromellose 0.3% Ophth Soln 15 ML Bottle EYEBOTH PRN (16:17)
[2024-02-07] MEDS ORDERED: hydrOXYzine HCl 25 MG Tab PO PRN (16:17)
[2024-02-07] MEDS ORDERED: Polyethylene Glycol 3350 Powder 17 GM Packet PO PRN (16:17)
[2024-02-07 16:40] LABS: BASOPHILS ABSOLUTE AUTO 0.1 x10^3/uL (0.0-0.2); BASOPHILS PERCENT AUTO 1.5 % (0.2-1.2); EOSINOPHILS ABSOLUTE AUTO 0.7 x10^3/uL (0.0-0.5); EOSINOPHILS PERCENT AUTO 14.6 % (0.0-4.0); HEMATOCRIT 50.5 % (33.0-47.0); IMMATURE GRAN ABSOLUTE AUTO 0.01 x10^3/uL (0.00-0.07); LYMPHOCYTES ABSOLUTE AUTO 1.4 x10^3/uL (1.0-4.8); LYMPHOCYTES PERCENT AUTO 29.8 % (25.0-50.0); MEAN CORPUSCULAR HEMOGLOBIN 32.7 pg (26.0-32.0); MEAN CORPUSCULAR HGB CONC 31.7 g/dL (32.0-36.0); MEAN CORPUSCULAR VOLUME 103.3 fL (78.0-93.0); MONOCYTES ABSOLUTE AUTO 0.4 x10^3/uL (0.0-0.8); MONOCYTES PERCENT AUTO 8.1 % (2.0-11.0); NEUTROPHILS ABSOLUTE AUTO 2.2 x10^3/uL (1.8-7.7); NEUTROPHILS PERCENT AUTO 45.8 % (50.0-80.0); PLATELET COUNT,PLT 147 x10^3/uL (130-400); RED BLOOD CELL COUNT 4.89 x10^6/uL (4.00-5.50); WHITE BLOOD CELL COUNT,WBC 4.8 x10^3/uL (4.0-10.0)
[2024-02-07 16:54] LABS: ALBUMIN 3.5 g/dL (3.4-5.0); BILIRUBIN TOTAL 0.4 mg/dL (0.2-1.0); CALCIUM 9.3 mg/dL (8.5-10.1); CREATININE 1.6 mg/dL (0.55-1.02); EST CRCL DRUG DOSING (CG) 25.9 mL/min; MAGNESIUM 1.9 mg/dL (1.8-2.4); POTASSIUM,K 4.4 mmol/L (3.5-5.1)
[2024-02-07 16:56] LABS: ANION GAP 6.4 mmol/L (5-15)
[2024-02-07 16:57] LABS: INR 4.1 (0.9-1.1); PROTHROMBIN TIME 38.7 SEC (8.9-11.5)
[2024-02-07 17:00] LABS: HCO3 VENOUS,POC 42 mmol/L (22-29); O2 SATURATION VENOUS,POC 55 %; PO2 VENOUS,POC 35 mmHg
[2024-02-07] MEDS: cefTRIAXone 1 GM Vial IVPUSH SCH (17:20)
[2024-02-07] MEDS: Doxycycline Monohydrate 100 MG Cap PO SCH (17:20)
[2024-02-07] MEDS: methylPREDNISolone Sodium Succinate 40 MG/1 ML SDV IVPUSH SCH (17:20)
[2024-02-07] MEDS: Gabapentin 300 MG Cap PO SCH ×2 (17:20→20:36)
[2024-02-07] MEDS: Diclofenac Sodium 1% Gel 100 GM Tube TOP SCH (17:37)
[2024-02-07 17:40] LABS: PH VENOUS,POC 7.29 pH (7.32-7.43)
[2024-02-07 17:41] LABS: PCO2 VENOUS,POC 80 mmHg (41-51)
[2024-02-07] MEDS ORDERED: Warfarin 5 MG Tab PO SCH (20:00)
[2024-02-07] MEDS: Budesonide 0.5 MG/2 ML Neb Susp INH SCH (20:35)
[2024-02-07] MEDS: Arformoterol 15 MCG/2 ML Neb Soln NEB SCH (20:36)
[2024-02-07] MEDS: traZODone 50 MG Tab PO SCH (20:36)
[2024-02-07] MEDS: Albuterol/Ipratropium 3.0-0.5 MG/3 ML Neb Soln NEB PRN (21:41)
[2024-02-08 07:00] LABS: BASOPHILS PERCENT AUTO 0.6 % (0.2-1.2); HEMATOCRIT 50.1 % (33.0-47.0); HEMOGLOBIN 15.9 g/dL (12.0-16.0); IMMATURE GRAN ABSOLUTE AUTO 0.01 x10^3/uL (0.00-0.07); LYMPHOCYTES ABSOLUTE AUTO 0.7 x10^3/uL (1.0-4.8); LYMPHOCYTES PERCENT AUTO 14.8 % (25.0-50.0); MEAN CORPUSCULAR HEMOGLOBIN 32.9 pg (26.0-32.0); MEAN CORPUSCULAR HGB CONC 31.7 g/dL (32.0-36.0); MEAN CORPUSCULAR VOLUME 103.7 fL (78.0-93.0); MONOCYTES ABSOLUTE AUTO 0.2 x10^3/uL (0.0-0.8); MONOCYTES PERCENT AUTO 4.7 % (2.0-11.0); NEUTROPHILS ABSOLUTE AUTO 3.9 x10^3/uL (1.8-7.7); NEUTROPHILS PERCENT AUTO 79.7 % (50.0-80.0); PLATELET COUNT,PLT 141 x10^3/uL (130-400); RED BLOOD CELL COUNT 4.83 x10^6/uL (4.00-5.50); WHITE BLOOD CELL COUNT,WBC 4.9 x10^3/uL (4.0-10.0)
[2024-02-08 07:14] LABS: CALCIUM 9.6 mg/dL (8.5-10.1); CREATININE 1.6 mg/dL (0.55-1.02); EST CRCL DRUG DOSING (CG) 24.77 mL/min; POTASSIUM,K 4.7 mmol/L (3.5-5.1)
[2024-02-08 07:16] LABS: ANION GAP 10.7 mmol/L (5-15)
[2024-02-08 09:04] LABS: INR 3.2 (0.9-1.1); PROTHROMBIN TIME 30.7 SEC (8.9-11.5)
[2024-02-08] MEDS: Omeprazole 20 MG Cap.CR PO SCH (09:38)
[2024-02-08] MEDS: Multivitamin Tab PO SCH (09:39)
[2024-02-08] MEDS: Venlafaxine 150 MG Cap.ER PO SCH (09:39)
[2024-02-08 16:09] LABS: HCO3 VENOUS,POC 34 mmol/L (22-29); O2 SATURATION VENOUS,POC 93 %; PCO2 VENOUS,POC 50 mmHg (41-51); PH VENOUS,POC 7.44 pH (7.32-7.43); PO2 VENOUS,POC 67 mmHg
[2024-02-08] MEDS: Sodium Chloride 0.9% 10 ML Syringe FLUSH PRN (19:19)
[2024-02-08] MEDS ORDERED: Warfarin 5 MG Tab PO SCH ×2 (20:00)
[2024-02-08] MEDS: Warfarin 5 MG Tab PO ONE (20:22)
[2024-02-09 08:34] LABS: BASOPHILS PERCENT AUTO 0.1 % (0.2-1.2); EOSINOPHILS PERCENT AUTO 0.1 % (0.0-4.0); HEMATOCRIT 48.9 % (33.0-47.0); HEMOGLOBIN 15.8 g/dL (12.0-16.0); IMMATURE GRAN ABSOLUTE AUTO 0.01 x10^3/uL (0.00-0.07); LYMPHOCYTES ABSOLUTE AUTO 0.7 x10^3/uL (1.0-4.8); LYMPHOCYTES PERCENT AUTO 6.7 % (25.0-50.0); MEAN CORPUSCULAR HGB CONC 32.3 g/dL (32.0-36.0); MEAN CORPUSCULAR VOLUME 102.1 fL (78.0-93.0); MONOCYTES ABSOLUTE AUTO 0.4 x10^3/uL (0.0-0.8); MONOCYTES PERCENT AUTO 3.8 % (2.0-11.0); NEUTROPHILS ABSOLUTE AUTO 9.6 x10^3/uL (1.8-7.7); NEUTROPHILS PERCENT AUTO 89.2 % (50.0-80.0); PLATELET COUNT,PLT 171 x10^3/uL (130-400); RED BLOOD CELL COUNT 4.79 x10^6/uL (4.00-5.50); WHITE BLOOD CELL COUNT,WBC 10.8 x10^3/uL (4.0-10.0)
[2024-02-09 08:51] LABS: INR 1.7 (0.9-1.1); PROTHROMBIN TIME 16.3 SEC (8.9-11.5)
[2024-02-09 09:03] LABS: ALBUMIN 3.7 g/dL (3.4-5.0); BILIRUBIN TOTAL 0.6 mg/dL (0.2-1.0); CALCIUM 10.1 mg/dL (8.5-10.1); CREATININE 1.5 mg/dL (0.55-1.02); EST CRCL DRUG DOSING (CG) 26.42 mL/min; POTASSIUM,K 4.9 mmol/L (3.5-5.1); PROTEIN TOTAL,TP 7.4 g/dL (6.4-8.2)
[2024-02-09 09:16] LABS: ANION GAP 10.9 mmol/L (5-15)
[2024-02-09] MEDS: Acetaminophen/HYDROcodone 325-5 MG Tab PO PRN (13:35)
[2024-02-09 17:14] VITALS: BP 122/72; PULSE 74
[2024-02-09] MEDS ORDERED: Warfarin 5 MG Tab PO ONE (20:00)
== END 2024-02-09 18:40 | disposition left against medical advice (07) | DRG 189 ==
LOC: VM.MS 15:25
PROVIDERS: ADMIT Internal Medicine; ATTEND Internal Medicine
DX: J96.21 Acute and chronic respiratory failure with hypoxia (principal); J44.1 Chronic obstructive pulmonary disease with (acute) exacerbation; F02.B4 Dementia in other diseases classified elsewhere, moderate, with anxiety; I50.32 Chronic diastolic (congestive) heart failure; F03.B3 Unspecified dementia, moderate, with mood disturbance; F41.9 Anxiety disorder, unspecified; G89.4 Chronic pain syndrome; F32.A Depression, unspecified; M19.90 Unspecified osteoarthritis, unspecified site; E78.5 Hyperlipidemia, unspecified; M17.0 Bilateral primary osteoarthritis of knee; M48.00 Spinal stenosis, site unspecified; N18.30 Chronic kidney disease, stage 3 unspecified; K21.9 Gastro-esophageal reflux disease without esophagitis; M54.2 Cervicalgia; G30.1 Alzheimer's disease with late onset; M54.9 Dorsalgia, unspecified; Z88.0 Allergy status to penicillin; Z63.5 Disruption of family by separation and divorce; Z90.710 Acquired absence of both cervix and uterus; Z98.890 Other specified postprocedural states; Z96.643 Presence of artificial hip joint, bilateral; Z86.711 Personal history of pulmonary embolism; Z91.199 Patient's noncompliance with other medical treatment and regimen due to unspecified reason; Z85.528 Personal history of other malignant neoplasm of kidney
CPT/HCPCS: 36415; 80048; 80053; 82140; 82803; 83735; 85025; 85610; 94640; 97129-GO; 97130-GO; 97161-GP; 97165-GO; A9270-GY; J0696; J2919; J3490; J7620-GY; U0002

== ENCOUNTER 2024-02-15 19:57 | Emergency (ER) | payer MEDICARE, OTHER ==
[2024-02-15] MEDS: Take Home: Acetaminophen/HYDROcodone 325-5 MG, 5 Tab Pack PO ONE (20:25)
[2024-02-15] MEDS: Take Home: Doxycycline 100 MG Cap, 4 Cap Pack PO ONE (20:25)
[2024-02-15] MEDS: methylPREDNISolone Sodium Succinate 125 MG/2 ML SDV IM ONE (20:25)
[2024-02-15 20:55] VITALS: BP 126/90; PULSE 99
== END 2024-02-15 20:36 | disposition home or self-care (01) ==
LOC: VM.ED 19:57
DX: J44.1 Chronic obstructive pulmonary disease with (acute) exacerbation (principal); I50.9 Heart failure, unspecified; K21.9 Gastro-esophageal reflux disease without esophagitis; N18.9 Chronic kidney disease, unspecified; F17.200 Nicotine dependence, unspecified, uncomplicated; Z90.710 Acquired absence of both cervix and uterus; Z79.01 Long term (current) use of anticoagulants; Z79.899 Other long term (current) drug therapy; Z79.51 Long term (current) use of inhaled steroids; Z88.0 Allergy status to penicillin; Z88.8 Allergy status to other drugs, medicaments and biological substances
CPT/HCPCS: 96372; 99284; A9270-GY; J2919

== ENCOUNTER 2024-10-16 15:28 | Inpatient (IN) | payer MEDICARE, OTHER ==
[2024-10-16] MEDS ORDERED: Albuterol/Ipratropium 3.0-0.5 MG/3 ML Neb Soln NEB PRN (15:47)
[2024-10-16] MEDS ORDERED: Ondansetron 4 MG/2 ML SDV IV PRN (15:47)
[2024-10-16] MEDS ORDERED: oxyCODONE 5 MG Tab PO PRN (15:47)
[2024-10-16] MEDS ORDERED: Ondansetron 4 MG Tab.DIS PO PRN (15:47)
[2024-10-16] MEDS ORDERED: Melatonin 3 MG Tab PO PRN (15:47)
[2024-10-16 16:08] LABS: BASOPHILS PERCENT AUTO 0.3 % (0.2-1.2); EOSINOPHILS ABSOLUTE AUTO 0.3 x10^3/uL (0.0-0.5); EOSINOPHILS PERCENT AUTO 4.2 % (0.0-4.0); HEMATOCRIT 48.8 % (33.0-47.0); HEMOGLOBIN 15.3 g/dL (12.0-16.0); IMMATURE GRAN ABSOLUTE AUTO 0.01 x10^3/uL (0.00-0.07); LYMPHOCYTES ABSOLUTE AUTO 1.2 x10^3/uL (1.0-4.8); LYMPHOCYTES PERCENT AUTO 19.2 % (25.0-50.0); MEAN CORPUSCULAR HEMOGLOBIN 31.2 pg (26.0-32.0); MEAN CORPUSCULAR HGB CONC 31.4 g/dL (32.0-36.0); MEAN CORPUSCULAR VOLUME 99.4 fL (78.0-93.0); MONOCYTES ABSOLUTE AUTO 0.5 x10^3/uL (0.0-0.8); MONOCYTES PERCENT AUTO 7.5 % (2.0-11.0); NEUTROPHILS ABSOLUTE AUTO 4.3 x10^3/uL (1.8-7.7); NEUTROPHILS PERCENT AUTO 68.6 % (50.0-80.0); PLATELET COUNT,PLT 176 x10^3/uL (130-400); RED BLOOD CELL COUNT 4.91 x10^6/uL (4.00-5.50); WHITE BLOOD CELL COUNT,WBC 6.3 x10^3/uL (4.0-10.0)
[2024-10-16 16:22] LABS: BLOOD UREA NITROGEN,BUN 19 mg/dL (7-18); CALCIUM 8.9 mg/dL (8.5-10.1); CARBON DIOXIDE,CO2 39 mmol/L (21-32); CHLORIDE,CL 99 mmol/L (98-107); CREATININE 1.3 mg/dL (0.55-1.02); GLUCOSE RANDOM 82 mg/dL (70-99); POTASSIUM,K 3.8 mmol/L (3.5-5.1); SODIUM,NA 138 mmol/L (136-145)
[2024-10-16 16:26] LABS: ANION GAP 3.8 mmol/L (5-15); ESTIMATED GFR 43 mL/min (>=60)
[2024-10-16] MEDS: Nicotine 21 MG/24 Hr Patch TRDERM SCH (17:11)
[2024-10-16] MEDS ORDERED: Hypromellose 0.3% Ophth Soln 15 ML Bottle EYEBOTH PRN (17:36)
[2024-10-16] MEDS: cefTRIAXone 2 GM Vial IVPUSH SCH (19:06)
[2024-10-16] MEDS: methylPREDNISolone Sodium Succinate 40 MG/1 ML SDV IVPUSH SCH (19:06)
[2024-10-16] MEDS: Azithromycin 500 MG in Sodium Chloride 0.9% 250 ML IV SCH (19:06)
[2024-10-16] MEDS: traZODone 50 MG Tab PO SCH (20:59)
[2024-10-16] MEDS: Gabapentin 300 MG Cap PO SCH ×2 (20:59)
[2024-10-16] MEDS: Arformoterol 15 MCG/2 ML Neb Soln NEB SCH (21:02)
[2024-10-16] MEDS: Budesonide 0.5 MG/2 ML Neb Susp INH SCH (21:07)
[2024-10-17 06:44] LABS: BASOPHILS PERCENT AUTO 0.2 % (0.2-1.2); HEMATOCRIT 52.1 % (33.0-47.0); IMMATURE GRAN ABSOLUTE AUTO 0.01 x10^3/uL (0.00-0.07); LYMPHOCYTES ABSOLUTE AUTO 0.5 x10^3/uL (1.0-4.8); LYMPHOCYTES PERCENT AUTO 11.5 % (25.0-50.0); MEAN CORPUSCULAR HEMOGLOBIN 30.6 pg (26.0-32.0); MEAN CORPUSCULAR HGB CONC 30.7 g/dL (32.0-36.0); MEAN CORPUSCULAR VOLUME 99.6 fL (78.0-93.0); MONOCYTES ABSOLUTE AUTO 0.1 x10^3/uL (0.0-0.8); MONOCYTES PERCENT AUTO 2.2 % (2.0-11.0); NEUTROPHILS ABSOLUTE AUTO 3.5 x10^3/uL (1.8-7.7); NEUTROPHILS PERCENT AUTO 85.9 % (50.0-80.0); PLATELET COUNT,PLT 188 x10^3/uL (130-400); RED BLOOD CELL COUNT 5.23 x10^6/uL (4.00-5.50); WHITE BLOOD CELL COUNT,WBC 4.1 x10^3/uL (4.0-10.0)
[2024-10-17 06:58] LABS: INR 2.3 (0.9-1.1); PROTHROMBIN TIME 24.3 SEC (9.6-12.0)
[2024-10-17 07:34] LABS: CALCIUM 9.2 mg/dL (8.5-10.1); CREATININE 1.3 mg/dL (0.55-1.02); EST CRCL DRUG DOSING (CG) 30.58 mL/min
[2024-10-17] MEDS: Venlafaxine 150 MG Cap.ER PO SCH (08:24)
[2024-10-17] MEDS: Omeprazole 20 MG Cap.CR PO SCH (08:25)
[2024-10-17] MEDS: Fluticasone Propionate Nasal Spray 9.9 ML BOTTLE NASBOTH SCH (08:27)
[2024-10-17] MEDS: Tiotropium Bromide 4 GM Inhalation Spray (2.5mcg/1 dose; 10 doses) INH SCH (08:28)
[2024-10-17] MEDS: Warfarin 2.5 MG, Warfarin 5 MG PO SCH (10:12)
[2024-10-17] MEDS: Albuterol 0.083% 2.5 MG/3 ML Neb Soln NEB SCH (10:12)
[2024-10-18 07:56] LABS: BASOPHILS PERCENT AUTO 0.1 % (0.2-1.2); HEMATOCRIT 46.7 % (33.0-47.0); HEMOGLOBIN 14.6 g/dL (12.0-16.0); IMMATURE GRAN ABSOLUTE AUTO 0.03 x10^3/uL (0.00-0.07); LYMPHOCYTES ABSOLUTE AUTO 0.3 x10^3/uL (1.0-4.8); LYMPHOCYTES PERCENT AUTO 2.3 % (25.0-50.0); MEAN CORPUSCULAR HEMOGLOBIN 30.9 pg (26.0-32.0); MEAN CORPUSCULAR HGB CONC 31.3 g/dL (32.0-36.0); MEAN CORPUSCULAR VOLUME 98.9 fL (78.0-93.0); MONOCYTES ABSOLUTE AUTO 0.3 x10^3/uL (0.0-0.8); MONOCYTES PERCENT AUTO 2.7 % (2.0-11.0); NEUTROPHILS ABSOLUTE AUTO 10.4 x10^3/uL (1.8-7.7); NEUTROPHILS PERCENT AUTO 94.6 % (50.0-80.0); PLATELET COUNT,PLT 177 x10^3/uL (130-400); RED BLOOD CELL COUNT 4.72 x10^6/uL (4.00-5.50)
[2024-10-18 08:06] LABS: CALCIUM 9.1 mg/dL (8.5-10.1); CREATININE 1.2 mg/dL (0.55-1.02); EST CRCL DRUG DOSING (CG) 34.08 mL/min; POTASSIUM,K 4.7 mmol/L (3.5-5.1)
[2024-10-18 08:10] LABS: ANION GAP 9.7 mmol/L (5-15)
[2024-10-18 08:14] LABS: INR 3.3 (0.9-1.1); PROTHROMBIN TIME 33.8 SEC (9.6-12.0)
[2024-10-18] MEDS: Acetaminophen 325 MG Tab PO PRN (09:16)
[2024-10-18] MEDS: Warfarin 2.5 MG Tab PO ONE (18:14)
[2024-10-18] MEDS ORDERED: Warfarin 2.5 MG Tab PO ONE (20:00)
[2024-10-19 08:04] LABS: HEMATOCRIT 47.2 % (33.0-47.0); HEMOGLOBIN 14.5 g/dL (12.0-16.0); IMMATURE GRAN ABSOLUTE AUTO 0.02 x10^3/uL (0.00-0.07); LYMPHOCYTES ABSOLUTE AUTO 0.3 x10^3/uL (1.0-4.8); MEAN CORPUSCULAR HEMOGLOBIN 30.5 pg (26.0-32.0); MEAN CORPUSCULAR HGB CONC 30.7 g/dL (32.0-36.0); MEAN CORPUSCULAR VOLUME 99.4 fL (78.0-93.0); MONOCYTES ABSOLUTE AUTO 0.3 x10^3/uL (0.0-0.8); MONOCYTES PERCENT AUTO 3.2 % (2.0-11.0); NEUTROPHILS ABSOLUTE AUTO 8.9 x10^3/uL (1.8-7.7); NEUTROPHILS PERCENT AUTO 93.6 % (50.0-80.0); PLATELET COUNT,PLT 161 x10^3/uL (130-400); RED BLOOD CELL COUNT 4.75 x10^6/uL (4.00-5.50); WHITE BLOOD CELL COUNT,WBC 9.5 x10^3/uL (4.0-10.0)
[2024-10-19 08:11] LABS: CALCIUM 9.1 mg/dL (8.5-10.1); CREATININE 1.1 mg/dL (0.55-1.02); EST CRCL DRUG DOSING (CG) 37.88 mL/min; POTASSIUM,K 5.1 mmol/L (3.5-5.1)
[2024-10-19 08:13] LABS: ANION GAP 6.1 mmol/L (5-15)
[2024-10-19 08:23] LABS: INR 4.5 (0.9-1.1)
[2024-10-19] MEDS: Polyethylene Glycol 3350 Powder 17 GM Packet PO PRN (12:55)
[2024-10-20 07:29] LABS: INR 3.5 (0.9-1.1); PROTHROMBIN TIME 35.9 SEC (9.6-12.0)
[2024-10-20 07:32] LABS: HEMATOCRIT 50.4 % (33.0-47.0); HEMOGLOBIN 15.7 g/dL (12.0-16.0); IMMATURE GRAN ABSOLUTE AUTO 0.02 x10^3/uL (0.00-0.07); LYMPHOCYTES ABSOLUTE AUTO 0.4 x10^3/uL (1.0-4.8); MEAN CORPUSCULAR HEMOGLOBIN 30.8 pg (26.0-32.0); MEAN CORPUSCULAR HGB CONC 31.2 g/dL (32.0-36.0); MONOCYTES ABSOLUTE AUTO 0.3 x10^3/uL (0.0-0.8); MONOCYTES PERCENT AUTO 3.8 % (2.0-11.0); NEUTROPHILS ABSOLUTE AUTO 7.1 x10^3/uL (1.8-7.7); NEUTROPHILS PERCENT AUTO 90.9 % (50.0-80.0); RED BLOOD CELL COUNT 5.09 x10^6/uL (4.00-5.50); WHITE BLOOD CELL COUNT,WBC 7.9 x10^3/uL (4.0-10.0)
[2024-10-20 07:42] LABS: CALCIUM 9.5 mg/dL (8.5-10.1); CREATININE 1.2 mg/dL (0.55-1.02); EST CRCL DRUG DOSING (CG) 34.72 mL/min; POTASSIUM,K 4.8 mmol/L (3.5-5.1)
[2024-10-20 07:43] LABS: ANION GAP 6.8 mmol/L (5-15)
[2024-10-20 07:51] LABS: PLATELET COUNT,PLT 155 x10^3/uL (130-400)
[2024-10-20] MEDS ORDERED: Warfarin 5 MG Tab PO SCH ×2 (09:00)
[2024-10-20] MEDS: Warfarin 5 MG Tab PO SCH (09:50)
[2024-10-20 10:25] VITALS: BP 135/69; PULSE 93
== END 2024-10-20 10:40 | disposition home health service (06) | DRG 193 ==
LOC: VM.MS 15:45
PROVIDERS: ADMIT Internal Medicine; ATTEND Internal Medicine
DX: J18.9 Pneumonia, unspecified organism (principal); J96.21 Acute and chronic respiratory failure with hypoxia; J44.0 Chronic obstructive pulmonary disease with (acute) lower respiratory infection; G93.40 Encephalopathy, unspecified; J44.1 Chronic obstructive pulmonary disease with (acute) exacerbation; Z66 Do not resuscitate; H91.90 Unspecified hearing loss, unspecified ear; I50.9 Heart failure, unspecified; E78.00 Pure hypercholesterolemia, unspecified; J44.9 Chronic obstructive pulmonary disease, unspecified; K21.9 Gastro-esophageal reflux disease without esophagitis; M19.90 Unspecified osteoarthritis, unspecified site; G30.9 Alzheimer's disease, unspecified; E53.8 Deficiency of other specified B group vitamins; F02.80 Dementia in other diseases classified elsewhere, unspecified severity, without behavioral disturbance, psychotic disturbance, mood disturbance, and anxiety; E55.9 Vitamin D deficiency, unspecified; N18.9 Chronic kidney disease, unspecified; R51.9 Headache, unspecified; G89.29 Other chronic pain; D64.9 Anemia, unspecified; F41.9 Anxiety disorder, unspecified; F32.A Depression, unspecified; Z88.8 Allergy status to other drugs, medicaments and biological substances; Z88.0 Allergy status to penicillin; Z98.49 Cataract extraction status, unspecified eye; Z79.01 Long term (current) use of anticoagulants; Z79.899 Other long term (current) drug therapy; Z90.710 Acquired absence of both cervix and uterus; Z96.649 Presence of unspecified artificial hip joint; Z72.0 Tobacco use; Z86.711 Personal history of pulmonary embolism; Z85.53 Personal history of malignant neoplasm of renal pelvis
CPT/HCPCS: 36415; 71046; 80048; 84484; 85025; 85610; 87070; 87205; 93005; 94640; 94760; 97129-GO; 97161-GP; 97164-GP; 97165-GO; 97535-GO; A9270-GY; J0456; J0696; J2919; J3490; J7050

== ENCOUNTER 2024-10-27 13:38 | Inpatient (IN) | payer MEDICARE, MEDICAID ==
[2024-10-27] MEDS: Albuterol 0.083% 2.5 MG/3 ML Neb Soln NEB ONE (14:10)
[2024-10-27 14:20] LABS: BASOPHILS PERCENT AUTO 0.7 % (0.2-1.2); EOSINOPHILS ABSOLUTE AUTO 0.3 x10^3/uL (0.0-0.5); EOSINOPHILS PERCENT AUTO 5.5 % (0.0-4.0); HEMATOCRIT 52.5 % (33.0-47.0); HEMOGLOBIN 16.9 g/dL (12.0-16.0); IMMATURE GRAN ABSOLUTE AUTO 0.02 x10^3/uL (0.00-0.07); LYMPHOCYTES ABSOLUTE AUTO 1.5 x10^3/uL (1.0-4.8); LYMPHOCYTES PERCENT AUTO 25.8 % (25.0-50.0); MEAN CORPUSCULAR HEMOGLOBIN 30.6 pg (26.0-32.0); MEAN CORPUSCULAR HGB CONC 32.2 g/dL (32.0-36.0); MEAN CORPUSCULAR VOLUME 95.1 fL (78.0-93.0); MONOCYTES ABSOLUTE AUTO 0.5 x10^3/uL (0.0-0.8); MONOCYTES PERCENT AUTO 9.3 % (2.0-11.0); NEUTROPHILS ABSOLUTE AUTO 3.4 x10^3/uL (1.8-7.7); NEUTROPHILS PERCENT AUTO 58.4 % (50.0-80.0); PLATELET COUNT,PLT 177 x10^3/uL (130-400); WHITE BLOOD CELL COUNT,WBC 5.8 x10^3/uL (4.0-10.0)
[2024-10-27] MEDS: methylPREDNISolone Sodium Succinate 125 MG/2 ML SDV IVPUSH ONE (14:22)
[2024-10-27 14:32] LABS: RED BLOOD CELL COUNT 5.52 x10^6/uL (4.00-5.50)
[2024-10-27 14:48] LABS: ALANINE AMINOTRANSFERASE,ALT 18 U/L (14-59); ALBUMIN 3.5 g/dL (3.4-5.0); ALKALINE PHOSPHATASE 94 U/L (46-116); ANION GAP 11.4 mmol/L (5-15); ASPARTATE AMNIOTRANSFERASE,AST 19 U/L (15-37); BILIRUBIN TOTAL 1.9 mg/dL (0.2-1.0); BLOOD UREA NITROGEN,BUN 17 mg/dL (7-18); CALCIUM 9.2 mg/dL (8.5-10.1); CARBON DIOXIDE,CO2 29 mmol/L (21-32); CHLORIDE,CL 101 mmol/L (98-107); CREATININE 1.1 mg/dL (0.55-1.02); ESTIMATED GFR 53 mL/min (>=60); GLUCOSE RANDOM 78 mg/dL (70-99); POTASSIUM,K 4.4 mmol/L (3.5-5.1); PRO B-TYPE NATRIUR PEPT,BNPPRO 108 pg/mL (<=125); SODIUM,NA 137 mmol/L (136-145)
[2024-10-27] MEDS ORDERED: hydrOXYzine HCl 25 MG Tab PO PRN (17:48)
[2024-10-27] MEDS ORDERED: Polyethylene Glycol 3350 Powder 17 GM Packet PO PRN (17:48)
[2024-10-27] MEDS ORDERED: Albuterol 0.083% 2.5 MG/3 ML Neb Soln INH PRN (17:48)
[2024-10-27] MEDS ORDERED: Warfarin 5 MG Tab PO SCH (18:00)
[2024-10-27] MEDS: Doxycycline Monohydrate 100 MG Cap PO SCH (18:42)
[2024-10-27] MEDS: traZODone 50 MG Tab PO SCH (20:53)
[2024-10-27] MEDS: Gabapentin 300 MG Cap PO SCH (20:53)
[2024-10-27] MEDS: Arformoterol 15 MCG/2 ML Neb Soln NEB SCH (20:54)
[2024-10-27] MEDS: Warfarin 5 MG Tab PO SCH (20:54)
[2024-10-27] MEDS: Diclofenac Sodium 1% Gel 100 GM Tube TOP SCH (20:54)
[2024-10-28] MEDS: Omeprazole 20 MG Cap.CR PO SCH (05:50)
[2024-10-28] MEDS: Sodium Chloride 0.9% 1,000 ML IV SCH (06:03)
[2024-10-28 06:53] LABS: BASOPHILS PERCENT AUTO 0.2 % (0.2-1.2); EOSINOPHILS PERCENT AUTO 0.2 % (0.0-4.0); HEMATOCRIT 46.7 % (33.0-47.0); HEMOGLOBIN 15.1 g/dL (12.0-16.0); IMMATURE GRAN ABSOLUTE AUTO 0.04 x10^3/uL (0.00-0.07); LYMPHOCYTES ABSOLUTE AUTO 0.8 x10^3/uL (1.0-4.8); LYMPHOCYTES PERCENT AUTO 6.9 % (25.0-50.0); MEAN CORPUSCULAR HEMOGLOBIN 30.6 pg (26.0-32.0); MEAN CORPUSCULAR HGB CONC 32.3 g/dL (32.0-36.0); MEAN CORPUSCULAR VOLUME 94.5 fL (78.0-93.0); MONOCYTES ABSOLUTE AUTO 0.8 x10^3/uL (0.0-0.8); MONOCYTES PERCENT AUTO 7.6 % (2.0-11.0); NEUTROPHILS ABSOLUTE AUTO 9.4 x10^3/uL (1.8-7.7); NEUTROPHILS PERCENT AUTO 84.7 % (50.0-80.0); PLATELET COUNT,PLT 168 x10^3/uL (130-400); RED BLOOD CELL COUNT 4.94 x10^6/uL (4.00-5.50); WHITE BLOOD CELL COUNT,WBC 11.1 x10^3/uL (4.0-10.0)
[2024-10-28 07:04] LABS: PROTHROMBIN TIME 10.4 SEC (9.6-12.0)
[2024-10-28 07:11] LABS: A/G RATIO 0.94; ALANINE AMINOTRANSFERASE,ALT 15 U/L (14-59); ALKALINE PHOSPHATASE 97 U/L (46-116); ASPARTATE AMNIOTRANSFERASE,AST 10 U/L (15-37); BILIRUBIN TOTAL 0.6 mg/dL (0.2-1.0); BLOOD UREA NITROGEN,BUN 19 mg/dL (7-18); CALCIUM 8.6 mg/dL (8.5-10.1); CARBON DIOXIDE,CO2 28 mmol/L (21-32); CHLORIDE,CL 100 mmol/L (98-107); CREATININE 1.2 mg/dL (0.55-1.02); GLUCOSE RANDOM 172 mg/dL (70-99); POTASSIUM,K 4.2 mmol/L (3.5-5.1); PROTEIN TOTAL,TP 6.2 g/dL (6.4-8.2); SODIUM,NA 133 mmol/L (136-145)
[2024-10-28 07:13] LABS: ANION GAP 9.2 mmol/L (5-15); ESTIMATED GFR 48 mL/min (>=60)
[2024-10-28] MEDS: Nicotine 21 MG/24 Hr Patch TRDERM SCH (08:37)
[2024-10-28] MEDS: Multivitamin Tab PO SCH (08:38)
[2024-10-28] MEDS: Tiotropium Bromide 4 GM Inhalation Spray (2.5mcg/1 dose; 10 doses) INH SCH (09:05)
[2024-10-28] MEDS: Venlafaxine 150 MG Cap.ER PO SCH (11:49)
[2024-10-28] MEDS ORDERED: Warfarin 5 MG Tab PO SCH (20:00)
[2024-10-28] MEDS: Warfarin 2.5 MG, Warfarin 5 MG PO SCH (20:43)
[2024-10-28] MEDS: Enoxaparin 40 MG/0.4 ML Syringe SUBCUT ONE (20:43)
[2024-10-29 06:46] LABS: BASOPHILS ABSOLUTE AUTO 0.1 x10^3/uL (0.0-0.2); BASOPHILS PERCENT AUTO 0.5 % (0.2-1.2); EOSINOPHILS ABSOLUTE AUTO 0.3 x10^3/uL (0.0-0.5); EOSINOPHILS PERCENT AUTO 2.5 % (0.0-4.0); HEMOGLOBIN 14.4 g/dL (12.0-16.0); IMMATURE GRAN ABSOLUTE AUTO 0.02 x10^3/uL (0.00-0.07); LYMPHOCYTES ABSOLUTE AUTO 2.3 x10^3/uL (1.0-4.8); LYMPHOCYTES PERCENT AUTO 23.2 % (25.0-50.0); MEAN CORPUSCULAR HEMOGLOBIN 30.6 pg (26.0-32.0); MEAN CORPUSCULAR HGB CONC 31.3 g/dL (32.0-36.0); MEAN CORPUSCULAR VOLUME 97.7 fL (78.0-93.0); MONOCYTES ABSOLUTE AUTO 0.5 x10^3/uL (0.0-0.8); MONOCYTES PERCENT AUTO 5.3 % (2.0-11.0); NEUTROPHILS ABSOLUTE AUTO 6.9 x10^3/uL (1.8-7.7); NEUTROPHILS PERCENT AUTO 68.3 % (50.0-80.0); PLATELET COUNT,PLT 157 x10^3/uL (130-400); RED BLOOD CELL COUNT 4.71 x10^6/uL (4.00-5.50)
[2024-10-29 06:54] LABS: CALCIUM 8.7 mg/dL (8.5-10.1); CREATININE 1.2 mg/dL (0.55-1.02); EST CRCL DRUG DOSING (CG) 31.13 mL/min; POTASSIUM,K 4.5 mmol/L (3.5-5.1)
[2024-10-29 06:57] LABS: ANION GAP 8.5 mmol/L (5-15)
[2024-10-29 06:59] LABS: INR 1.4 (0.9-1.1); PROTHROMBIN TIME 14.9 SEC (9.6-12.0)
[2024-10-29] MEDS: Famotidine 20 MG Tab PO SCH (09:21)
[2024-10-29] MEDS: predniSONE 20 MG Tab PO SCH (09:21)
[2024-10-29] MEDS: Pantoprazole 40 MG Tab.CR PO SCH (09:21)
[2024-10-29] MEDS: Enoxaparin 40 MG/0.4 ML Syringe SUBCUT ONE (09:21)
[2024-10-29] MEDS: Warfarin 5 MG Tab PO SCH (20:12)
[2024-10-30 06:44] LABS: BASOPHILS PERCENT AUTO 0.4 % (0.2-1.2); EOSINOPHILS ABSOLUTE AUTO 0.1 x10^3/uL (0.0-0.5); HEMATOCRIT 46.4 % (33.0-47.0); HEMOGLOBIN 14.5 g/dL (12.0-16.0); IMMATURE GRAN ABSOLUTE AUTO 0.02 x10^3/uL (0.00-0.07); LYMPHOCYTES ABSOLUTE AUTO 1.3 x10^3/uL (1.0-4.8); LYMPHOCYTES PERCENT AUTO 17.1 % (25.0-50.0); MEAN CORPUSCULAR HEMOGLOBIN 30.6 pg (26.0-32.0); MEAN CORPUSCULAR HGB CONC 31.3 g/dL (32.0-36.0); MEAN CORPUSCULAR VOLUME 97.9 fL (78.0-93.0); MONOCYTES ABSOLUTE AUTO 0.5 x10^3/uL (0.0-0.8); MONOCYTES PERCENT AUTO 5.9 % (2.0-11.0); NEUTROPHILS ABSOLUTE AUTO 5.8 x10^3/uL (1.8-7.7); NEUTROPHILS PERCENT AUTO 75.3 % (50.0-80.0); PLATELET COUNT,PLT 161 x10^3/uL (130-400); RED BLOOD CELL COUNT 4.74 x10^6/uL (4.00-5.50)
[2024-10-30 07:01] LABS: INR 2.1 (0.9-1.1); PROTHROMBIN TIME 22.1 SEC (9.6-12.0)
[2024-10-30 07:15] LABS: A/G RATIO 0.97; ALBUMIN 3.2 g/dL (3.4-5.0); BILIRUBIN TOTAL 0.3 mg/dL (0.2-1.0); CALCIUM 8.9 mg/dL (8.5-10.1); CREATININE 1.2 mg/dL (0.55-1.02); EST CRCL DRUG DOSING (CG) 33.5 mL/min; POTASSIUM,K 4.5 mmol/L (3.5-5.1); PROTEIN TOTAL,TP 6.5 g/dL (6.4-8.2)
[2024-10-30 07:17] LABS: ANION GAP 9.5 mmol/L (5-15)
[2024-10-30 07:21] LABS: WHITE BLOOD CELL COUNT,WBC 7.7 x10^3/uL (4.0-10.0)
[2024-10-30] MEDS ORDERED: Warfarin 5 MG Tab PO SCH (09:15)
[2024-10-30 09:31] VITALS: BP 98/54; PULSE 77
== END 2024-10-30 09:51 | disposition swing bed (61) | DRG 189 ==
LOC: VM.ED 13:38 → VM.MS 15:05
PROVIDERS: ADMIT Internal Medicine; ATTEND Internal Medicine
DX: J96.21 Acute and chronic respiratory failure with hypoxia (principal); K85.90 Acute pancreatitis without necrosis or infection, unspecified; J44.1 Chronic obstructive pulmonary disease with (acute) exacerbation; G93.40 Encephalopathy, unspecified; E44.0 Moderate protein-calorie malnutrition; Z68.1 Body mass index [BMI] 19.9 or less, adult; Z79.51 Long term (current) use of inhaled steroids; F02.84 Dementia in other diseases classified elsewhere, unspecified severity, with anxiety; Z66 Do not resuscitate; I95.9 Hypotension, unspecified; G89.29 Other chronic pain; K21.9 Gastro-esophageal reflux disease without esophagitis; M19.90 Unspecified osteoarthritis, unspecified site; M54.9 Dorsalgia, unspecified; N20.0 Calculus of kidney; I50.9 Heart failure, unspecified; E86.0 Dehydration; D64.9 Anemia, unspecified; G30.9 Alzheimer's disease, unspecified; H91.90 Unspecified hearing loss, unspecified ear; E55.9 Vitamin D deficiency, unspecified; E53.8 Deficiency of other specified B group vitamins; E78.00 Pure hypercholesterolemia, unspecified; N18.32 Chronic kidney disease, stage 3b; F32.A Depression, unspecified; Z88.0 Allergy status to penicillin; Z88.8 Allergy status to other drugs, medicaments and biological substances; Z85.53 Personal history of malignant neoplasm of renal pelvis; Z79.899 Other long term (current) drug therapy; Z87.891 Personal history of nicotine dependence; Z96.643 Presence of artificial hip joint, bilateral; Z98.49 Cataract extraction status, unspecified eye; Z90.710 Acquired absence of both cervix and uterus; Z79.01 Long term (current) use of anticoagulants; Z86.711 Personal history of pulmonary embolism
CPT/HCPCS: 36415; 71045; 80048; 80053; 82947; 83605; 83690; 83880; 84484; 85025; 85610; 87428-QW; 93005; 93010; 94640; 94668; 94760; 96374; 97110-GP; 97116-GP; 97162-GP; 97165-GO; 97535-GO; 99284; 99285-25; A9270-GY; J1650; J2919; J3490; J7030; J7512

== ENCOUNTER 2024-10-30 09:23 | Inpatient (IN) | payer MEDICARE, MEDICAID ==
[2024-10-30] MEDS ORDERED: Polyethylene Glycol 3350 Powder 17 GM Packet PO PRN (14:43)
[2024-10-30] MEDS: Diclofenac Sodium 1% Gel 100 GM Tube TOP SCH (18:06)
[2024-10-30] MEDS: Pantoprazole 40 MG Tab.CR PO SCH (18:06)
[2024-10-30] MEDS: traZODone 50 MG Tab PO SCH (20:02)
[2024-10-30] MEDS: Arformoterol 15 MCG/2 ML Neb Soln NEB SCH (20:02)
[2024-10-30] MEDS: Gabapentin 300 MG Cap PO SCH (20:03)
[2024-10-30] MEDS: Doxycycline Monohydrate 100 MG Cap PO SCH (20:03)
[2024-10-30] MEDS ORDERED: Acetaminophen 500 MG Tab PO PRN (21:23)
[2024-10-31] MEDS: Nicotine 21 MG/24 Hr Patch TRDERM SCH (08:06)
[2024-10-31] MEDS: Venlafaxine 150 MG Cap.ER PO SCH (08:07)
[2024-10-31] MEDS: predniSONE 20 MG Tab PO SCH (08:07)
[2024-10-31] MEDS: Warfarin 5 MG Tab PO SCH (08:07)
[2024-10-31] MEDS: Famotidine 20 MG Tab PO SCH (08:07)
[2024-10-31] MEDS: Tiotropium Bromide 4 GM Inhalation Spray (2.5mcg/1 dose; 10 doses) INH SCH (08:08)
[2024-10-31] MEDS: Multivitamin Tab PO SCH (08:12)
[2024-11-03 07:09] LABS: BASOPHILS PERCENT AUTO 0.4 % (0.2-1.2); EOSINOPHILS ABSOLUTE AUTO 0.2 x10^3/uL (0.0-0.5); EOSINOPHILS PERCENT AUTO 2.5 % (0.0-4.0); HEMATOCRIT 48.1 % (33.0-47.0); HEMOGLOBIN 15.3 g/dL (12.0-16.0); IMMATURE GRAN ABSOLUTE AUTO 0.02 x10^3/uL (0.00-0.07); LYMPHOCYTES PERCENT AUTO 28.9 % (25.0-50.0); MEAN CORPUSCULAR HGB CONC 31.8 g/dL (32.0-36.0); MEAN CORPUSCULAR VOLUME 97.4 fL (78.0-93.0); MONOCYTES ABSOLUTE AUTO 0.4 x10^3/uL (0.0-0.8); MONOCYTES PERCENT AUTO 5.7 % (2.0-11.0); NEUTROPHILS ABSOLUTE AUTO 4.3 x10^3/uL (1.8-7.7); NEUTROPHILS PERCENT AUTO 62.2 % (50.0-80.0); PLATELET COUNT,PLT 139 x10^3/uL (130-400); RED BLOOD CELL COUNT 4.94 x10^6/uL (4.00-5.50)
[2024-11-03 07:10] LABS: INR 3.5 (0.9-1.1); PROTHROMBIN TIME 35.4 SEC (9.6-12.0)
[2024-11-03 07:28] LABS: BLOOD UREA NITROGEN,BUN 39 mg/dL (7-18); CALCIUM 8.9 mg/dL (8.5-10.1); CARBON DIOXIDE,CO2 36 mmol/L (21-32); CHLORIDE,CL 102 mmol/L (98-107); CREATININE 1.2 mg/dL (0.55-1.02); GLUCOSE RANDOM 73 mg/dL (70-99); POTASSIUM,K 4.3 mmol/L (3.5-5.1); SODIUM,NA 141 mmol/L (136-145)
[2024-11-03 07:32] LABS: ANION GAP 7.3 mmol/L (5-15); ESTIMATED GFR 48 mL/min (>=60)
[2024-11-03 07:34] LABS: WHITE BLOOD CELL COUNT,WBC 6.9 x10^3/uL (4.0-10.0)
[2024-11-04] MEDS: Gabapentin 300 MG Cap PO SCH (21:13)
[2024-11-05 06:36] LABS: BASOPHILS PERCENT AUTO 0.3 % (0.2-1.2); EOSINOPHILS ABSOLUTE AUTO 0.2 x10^3/uL (0.0-0.5); EOSINOPHILS PERCENT AUTO 3.7 % (0.0-4.0); HEMOGLOBIN 15.1 g/dL (12.0-16.0); IMMATURE GRAN ABSOLUTE AUTO 0.02 x10^3/uL (0.00-0.07); LYMPHOCYTES ABSOLUTE AUTO 2.2 x10^3/uL (1.0-4.8); LYMPHOCYTES PERCENT AUTO 35.9 % (25.0-50.0); MEAN CORPUSCULAR HEMOGLOBIN 30.7 pg (26.0-32.0); MEAN CORPUSCULAR HGB CONC 31.5 g/dL (32.0-36.0); MEAN CORPUSCULAR VOLUME 97.6 fL (78.0-93.0); MONOCYTES ABSOLUTE AUTO 0.4 x10^3/uL (0.0-0.8); MONOCYTES PERCENT AUTO 5.8 % (2.0-11.0); NEUTROPHILS ABSOLUTE AUTO 3.2 x10^3/uL (1.8-7.7); PLATELET COUNT,PLT 122 x10^3/uL (130-400); RED BLOOD CELL COUNT 4.92 x10^6/uL (4.00-5.50)
[2024-11-05 06:51] LABS: ANION GAP 7.3 mmol/L (5-15); CALCIUM 8.7 mg/dL (8.5-10.1); CREATININE 1.2 mg/dL (0.55-1.02); EST CRCL DRUG DOSING (CG) 32.93 mL/min; INR 2.3 (0.9-1.1); POTASSIUM,K 4.3 mmol/L (3.5-5.1)
[2024-11-09 08:57] LABS: BASOPHILS PERCENT AUTO 0.5 % (0.2-1.2); EOSINOPHILS ABSOLUTE AUTO 0.5 x10^3/uL (0.0-0.5); EOSINOPHILS PERCENT AUTO 7.7 % (0.0-4.0); HEMATOCRIT 48.8 % (33.0-47.0); HEMOGLOBIN 15.7 g/dL (12.0-16.0); IMMATURE GRAN ABSOLUTE AUTO 0.02 x10^3/uL (0.00-0.07); LYMPHOCYTES ABSOLUTE AUTO 1.5 x10^3/uL (1.0-4.8); LYMPHOCYTES PERCENT AUTO 24.8 % (25.0-50.0); MEAN CORPUSCULAR HEMOGLOBIN 31.2 pg (26.0-32.0); MEAN CORPUSCULAR HGB CONC 32.2 g/dL (32.0-36.0); MEAN CORPUSCULAR VOLUME 96.8 fL (78.0-93.0); MONOCYTES ABSOLUTE AUTO 0.4 x10^3/uL (0.0-0.8); NEUTROPHILS ABSOLUTE AUTO 3.5 x10^3/uL (1.8-7.7); NEUTROPHILS PERCENT AUTO 59.7 % (50.0-80.0); PLATELET COUNT,PLT 123 x10^3/uL (130-400); RED BLOOD CELL COUNT 5.04 x10^6/uL (4.00-5.50); WHITE BLOOD CELL COUNT,WBC 5.9 x10^3/uL (4.0-10.0)
[2024-11-09 09:11] LABS: PROTHROMBIN TIME 30.3 SEC (9.6-12.0)
[2024-11-09 09:27] LABS: A/G RATIO 1.17; ALBUMIN 3.4 g/dL (3.4-5.0); BILIRUBIN TOTAL 0.9 mg/dL (0.2-1.0); CALCIUM 8.7 mg/dL (8.5-10.1); CREATININE 1.3 mg/dL (0.55-1.02); EST CRCL DRUG DOSING (CG) 30.39 mL/min; PROTEIN TOTAL,TP 6.3 g/dL (6.4-8.2)
[2024-11-09] MEDS: Rosuvastatin 20 MG Tab PO SCH (10:21)
[2024-11-09] MEDS: Gabapentin 100 MG Cap PO SCH (20:24)
[2024-11-09] MEDS: Warfarin 2 MG Tab PO SCH (20:25)
[2024-11-10] MEDS: Albuterol 0.083% 2.5 MG/3 ML Neb Soln INH PRN (08:26)
[2024-11-10] MEDS ORDERED: Warfarin 5 MG Tab PO SCH (20:00)
[2024-11-10] MEDS: Warfarin 5 MG Tab PO SCH (20:40)
[2024-11-11] MEDS: methylPREDNISolone Sodium Succinate 40 MG/1 ML SDV IVPUSH ONE (00:57)
[2024-11-11] MEDS: hydrOXYzine HCl 25 MG Tab PO PRN (05:11)
[2024-11-11] MEDS ORDERED: Naloxone 0.4 MG/ML SDV IVPUSH PRN (06:15)
[2024-11-11] MEDS: Morphine 2 MG/ML SYRINGE IVPUSH ONE (06:23)
[2024-11-11 06:32] LABS: HEMOGLOBIN 16.1 g/dL (12.0-16.0); MEAN CORPUSCULAR HEMOGLOBIN 30.8 pg (26.0-32.0); MEAN CORPUSCULAR HGB CONC 32.2 g/dL (32.0-36.0); MEAN CORPUSCULAR VOLUME 95.6 fL (78.0-93.0); RED BLOOD CELL COUNT 5.23 x10^6/uL (4.00-5.50); WHITE BLOOD CELL COUNT,WBC 7.1 x10^3/uL (4.0-10.0)
[2024-11-11 06:35] LABS: HCO3 VENOUS,POC 29 mmol/L (22-29); O2 SATURATION VENOUS,POC 88 %; PCO2 VENOUS,POC 50 mmHg (41-51); PH VENOUS,POC 7.36 pH (7.32-7.43); PO2 VENOUS,POC 58 mmHg
[2024-11-11 06:54] LABS: CALCIUM 9.2 mg/dL (8.5-10.1); CREATININE 1.4 mg/dL (0.55-1.02); EST CRCL DRUG DOSING (CG) 28.53 mL/min; POTASSIUM,K 4.7 mmol/L (3.5-5.1)
[2024-11-11 06:55] LABS: ANION GAP 14.7 mmol/L (5-15)
[2024-11-11] MEDS: Acetaminophen 650 MG Tab.ER PO SCH (07:27)
[2024-11-11] MEDS: predniSONE 20 MG Tab PO SCH (08:26)
[2024-11-11 10:00] LABS: PRO B-TYPE NATRIUR PEPT,BNPPRO 455 pg/mL (<=125)
[2024-11-11] MEDS ORDERED: HYDROXYZINE HCL 25 MG PO PRN (15:48)
[2024-11-11] MEDS ORDERED: Albuterol 0.083% 2.5 MG/3 ML Neb Soln (OWN SUPPLY) INH PRN (16:11)
[2024-11-11] MEDS: Omeprazole 20 MG Cap.CR (OWN SUPPLY) PO SCH (17:19)
[2024-11-11] MEDS: Levofloxacin 500 MG Tab PO SCH (18:13)
[2024-11-11] MEDS ORDERED: Gabapentin 300 MG Cap PO SCH (21:00)
[2024-11-11] MEDS: ARFORMOTEROL 15 MCG/2 ML NEB SCH (21:21)
[2024-11-11] MEDS: Gabapentin 300 MG Cap (OWN SUPPLY) PO SCH (21:25)
[2024-11-12] MEDS: DESVENLAFAXINE 50 MG PO SCH (08:25)
[2024-11-12] MEDS: TIOTROPIUM BROMIDE INH SCH (08:28)
[2024-11-12] MEDS: Warfarin 5 MG Tab PO SCH (20:10)
[2024-11-13] MEDS: Levofloxacin 500 MG Tab PO SCH (06:45)
[2024-11-13 06:53] LABS: BASOPHILS PERCENT AUTO 0.4 % (0.2-1.2); EOSINOPHILS ABSOLUTE AUTO 0.4 x10^3/uL (0.0-0.5); EOSINOPHILS PERCENT AUTO 5.5 % (0.0-4.0); HEMATOCRIT 46.9 % (33.0-47.0); HEMOGLOBIN 14.8 g/dL (12.0-16.0); IMMATURE GRAN ABSOLUTE AUTO 0.02 x10^3/uL (0.00-0.07); LYMPHOCYTES ABSOLUTE AUTO 2.2 x10^3/uL (1.0-4.8); LYMPHOCYTES PERCENT AUTO 28.1 % (25.0-50.0); MEAN CORPUSCULAR HEMOGLOBIN 30.8 pg (26.0-32.0); MEAN CORPUSCULAR HGB CONC 31.6 g/dL (32.0-36.0); MEAN CORPUSCULAR VOLUME 97.7 fL (78.0-93.0); MONOCYTES ABSOLUTE AUTO 0.6 x10^3/uL (0.0-0.8); MONOCYTES PERCENT AUTO 6.9 % (2.0-11.0); NEUTROPHILS ABSOLUTE AUTO 4.7 x10^3/uL (1.8-7.7); NEUTROPHILS PERCENT AUTO 58.8 % (50.0-80.0); PLATELET COUNT,PLT 151 x10^3/uL (130-400); WHITE BLOOD CELL COUNT,WBC 7.9 x10^3/uL (4.0-10.0)
[2024-11-13 07:09] LABS: CALCIUM 9.2 mg/dL (8.5-10.1); CREATININE 1.3 mg/dL (0.55-1.02); EST CRCL DRUG DOSING (CG) 30.72 mL/min; POTASSIUM,K 4.2 mmol/L (3.5-5.1)
[2024-11-13 07:25] LABS: PROTHROMBIN TIME 43.9 SEC (9.6-12.0)
[2024-11-13 07:26] LABS: INR 4.4 (0.9-1.1)
[2024-11-13 07:39] LABS: ANION GAP 9.2 mmol/L (5-15)
[2024-11-13] MEDS: Nicotine 14 MG/24 Hr Patch TRDERM SCH (08:43)
[2024-11-13] MEDS: Phytonadione 100 MCG Tab PO ONE (10:23)
[2024-11-13 11:46] VITALS: BP 87/60; PULSE 101
[2024-11-13] MEDS ORDERED: Warfarin 5 MG Tab PO SCH (21:00)
== END 2024-11-13 11:10 | DRG 189 ==
LOC: VM.MS 10:30
PROVIDERS: ADMIT Internal Medicine; ATTEND Internal Medicine
PROC: 5A0935A Assistance with Respiratory Ventilation, Less than 24 Consecutive Hours, High Flow/Velocity Cannula (ICD-10-PCS; principal; 2024-11-11)
DX: J96.21 Acute and chronic respiratory failure with hypoxia (principal); D68.9 Coagulation defect, unspecified; E44.0 Moderate protein-calorie malnutrition; I82.509 Chronic embolism and thrombosis of unspecified deep veins of unspecified lower extremity; I27.82 Chronic pulmonary embolism; F03.C3 Unspecified dementia, severe, with mood disturbance; J44.1 Chronic obstructive pulmonary disease with (acute) exacerbation; K86.1 Other chronic pancreatitis; G93.49 Other encephalopathy; N18.32 Chronic kidney disease, stage 3b; N20.0 Calculus of kidney; M47.816 Spondylosis without myelopathy or radiculopathy, lumbar region; Z96.643 Presence of artificial hip joint, bilateral; K21.9 Gastro-esophageal reflux disease without esophagitis; I25.10 Atherosclerotic heart disease of native coronary artery without angina pectoris; G89.29 Other chronic pain; E86.0 Dehydration; I95.89 Other hypotension; K44.9 Diaphragmatic hernia without obstruction or gangrene; R07.9 Chest pain, unspecified; Z79.01 Long term (current) use of anticoagulants; Z90.5 Acquired absence of kidney
CPT/HCPCS: 36415; 71045; 71250; 74176; 80048; 80053; 82803; 82947; 83690; 83735; 83880; 84484; 85025; 85027; 85610; 93005; 94640; 94668; 94760; 97110-GP; 97116-GP; 97535-GO; A9270-GY; J2270; J2919; J3490; J7512